=== PATIENT | male | born 1955 | race American Indian/Alaskan Native ===

== ENCOUNTER 2017-01-29 20:50 | Inpatient (IN) | payer OTHER ==
[2017-01-29 21:42] VITALS: BMI 29.2
--- NOTE | 2017-01-29 21:49 | ED PDOC ---
Arrival/HPI - General Chief Complaint: Lower Extremity Problem/Injury Time Seen by Provider: 01/29/17 21:27 Historian: Patient - History of Present Illness Narrative History of Present Illness (Text): 01/29/17 21:46 Tanner Fisher is a 61 year old male, with a past medical history of diabetes on insulin, presents to the emergency department complaining of infected leg ulcers for past 1 month. Patient with a history of IV drug abuse, injects heroin. States he has had a subjective fever, but denies any chills. Denies headache, dizziness, chest pain, shortness of breath, back pain, urinary symptoms or any other complaints at this time. Time/Duration: > week Symptom Onset: Gradual Symptom Course: Unchanged Severity Level: Mild Activities at Onset: Light Context: Home Past Medical History - Provider Review Nursing Documentation Reviewed: Yes - Cardiac Hx Hypertension: Yes - Pulmonary Hx Respiratory Disorders: No - Neurological Hx Neurological Disorder: No - HEENT Hx HEENT Disorder: No - Renal Hx Renal Disorder: No - Endocrine/Metabolic Hx Diabetes Mellitus Type 2: Yes - Hematological/Oncological Hx Blood Disorders: No - Integumentary Hx Dermatological Disorder: No - Musculoskeletal/Rheumatological Hx Musculoskeletal Disorders: No - Gastrointestinal Hx Gastrointestinal Disorders: No - Genitourinary/Gynecological Hx Genitourinary Disorders: No - Psychiatric Hx Psychophysiologic Disorder: No Hx Substance Use: Yes - Anesthesia Hx Anesthesia: No Hx Anesthesia Reactions: No Family/Social History - Physician Review Nursing Documentation Reviewed: Yes Family/Social History: No Known Family HX Smoking Status: Heavy Smoker > 10 Cigarettes Daily Hx Alcohol Use: No Hx Substance Use: Yes Substance used: heroine Allergies/Home Meds Allergies/Adverse Reactions: Allergies No Known Allergies Allergy (Verified 01/29/17 21:40) Review of Systems - Physician Review All systems were reviewed & negative as marked: Yes - Review of Systems Constitutional: Fevers (subjective fever ) Respiratory: Normal. absent: SOB, Cough Cardiovascular: Normal. absent: Chest Pain, Palpitations Musculoskeletal: Other (infected b/l lower extremity ulcers. ) Neurological: Normal. absent: Headache, Dizziness Psychiatric: Normal Physical Exam Vital Signs Reviewed: Yes Vital Signs Temp Pulse Resp BP Pulse Ox 01/30/17 01:30 98.1 F 76 18 102/58 L 96 01/29/17 21:40 98.2 F 87 16 100/58 L 98 01/29/17 21:39 98.2 F 87 16 100/58 L 98 Temperature: Afebrile Blood Pressure: Normal Pulse: Regular Respiratory Rate: Normal Appearance: Positive for: Well-Appearing, Non-Toxic, Comfortable Pain Distress: None Mental Status: Positive for: Alert and Oriented X 3 - Systems Exam Head: Present: Atraumatic, Normocephalic Pupils: Present: PERRL Extroacular Muscles: Present: EOMI Conjunctiva: Present: Normal Neck: Present: Normal Range of Motion Respiratory/Chest: Present: Clear to Auscultation, Good Air Exchange. No: Respiratory Distress, Accessory Muscle Use Cardiovascular: Present: Regular Rate and Rhythm, Normal S1, S2. No: Murmurs Abdomen: Present: Normal Bowel Sounds. No: Tenderness, Distention, Peritoneal Signs, Rebound, Guarding Upper Extremity: Present: Normal Inspection. No: Cyanosis, Edema Lower Extremity: Present: Other (multiple infected cavitated ulcers with purulent discharge to bilateral lower extremities. ) Neurological: Present: GCS=15, CN II-XII Intact, Speech Normal, Motor Func Grossly Intact, Normal Sensory Function Skin: Present: Warm, Dry, Normal Color. No: Rashes Psychiatric: Present: Alert, Oriented x 3, Normal Insight, Normal Concentration Medical Decision Making ED Course and Treatment: 01/29/17 21:53 Impression: A 61 year old male presenting to emergency department for infected lower extremity ulcers. Plan: -- Labs -- Chest X-ray -- Wound culture -- Blood culture -- Reassess and disposition Progress Notes: 01/30/17 03:[address] Kuhn who is aware and agrees with the plan to admit patient to the hospital for IV antibiotic administration. Accepts pt under hospitalist service. 01/30/17 05:17 EKG interpreted by me: NSR @ 71 bpm. 1st degree AV block. RBBB. - Lab Interpretations Lab Results: 01/30/17 01:15 01/30/17 02:00 Lab Results 01/30/17 02:00: Sodium 133, Potassium 4.4, Chloride 94 L, Carbon Dioxide 30, Anion Gap 13, BUN 12, Creatinine 0.8, Est GFR ( Amer) > 60, Est GFR (Non- Af Amer) > 60, Random Glucose 420 H*, Calcium 8.8, Total Bilirubin 0.6, AST 35, ALT 13, Alkaline Phosphatase 85, Total Protein 7.9, Albumin 3.6, Globulin 4.3, Albumin/Globulin Ratio 0.8 L 01/30/17 01:15: WBC 5.7, RBC 4.30, Hgb 13.1 L, Hct 38.7 L, MCV 90.0, MCH 30.5, MCHC 33.9, RDW 12.5, Plt Count 232, MPV 10.4, ESR 30 H I have reviewed the lab results: Yes - RAD Interpretation Radiology Orders: 01/29/17 21:48 CHEST PORTABLE [RAD] Stat - Medication Orders Current Medication Orders: Heparin Sodium (Porcine) (Heparin) 5,000 units SC Q8 ELIJAH PRN Reason: Protocol Last Admin: 01/30/17 05:05 Dose: Piperacillin Sod/Tazobactam Sod (Zosyn 3.375 In Ns 100ml) 100 mls @ 200 mls/hr IVPB Q6 ELIJAH PRN Reason: Protocol Stop: 01/30/17 12:29 Vancomycin HCl (Vancomycin 1gm) 250 mls @ 167 mls/hr IVPB Q12H ELIJAH PRN Reason: Protocol Sodium Chloride (Sodium Chloride 0.9%) 1,000 mls @ 100 mls/hr IV .Q10H ELIJAH Insulin Detemir (Levemir) 10 unit SC HS ELIJAH Insulin Human Lispro (Humalog Med) 0 units SC ACHS ELIJAH PRN Reason: Protocol Insulin Human Lispro (Humalog) 3 units SC AC ELIJAH Pantoprazole Sodium (Protonix Ec Tab) 40 mg PO 0630 ELIJAH Discontinued Medications Heparin Sodium (Porcine) (Heparin) 5,000 units SC STAT STA PRN Reason: Protocol Stop: 01/30/17 04:15 Last Admin: 01/30/17 04:29 Dose: 5,000 UNITS Subcutaneous Administrations Document 01/30/17 04:29 [email or web address] (Rec: 01/30/17 04:29 [email or web address] [id number]) Injection Site MAR Injection Site Left Abdomen Charges for Administration # of Subcutaneous Administrations 1 Sodium Chloride (Sodium Chloride 0.9%) 1,000 mls @ 100 mls/hr IV .Q10H ELIJAH Piperacillin Sod/Tazobactam Sod (Zosyn 3.375 In Ns 100ml) 100 mls @ 200 mls/hr IV STAT STA PRN Reason: Protocol Stop: 01/30/17 02:01 Last Admin: 01/30/17 03:38 Dose: 200 MLS/HR eMAR Start Stop Document 01/30/17 03:38 STEPHIE (Rec: 01/30/17 03:38 STEPHIE [facility] [id number][place] Intravenous Solution Start Date 01/30/17 Start Time 02:35 End Date 01/30/17 End time 03:38 Total Infusion Time 63 Vancomycin HCl (Vancomycin 1gm) 250 mls @ 133.333 mls/hr IVPB STAT STA PRN Reason: Protocol Stop: 01/30/17 03:26 Last Admin: 01/30/17 03:37 Dose: 133.333 MLS/HR eMAR Start Stop Document 01/30/17 03:37 STEPHIE (Rec: 01/30/17 03:38 STEPHIE [facility] [id number][place] Intravenous Solution Start Date 01/30/17 Start Time 03:38 Sodium Chloride (Sodium Chloride 0.9%) 100 mls @ 100 mls/hr IV .Q1H ELIJAH Insulin Human Lispro (Humalog) 10 units SC STAT STA Stop: 01/30/17 03:26 Last Admin: 01/30/17 03:51 Dose: 10 UNITS Subcutaneous Administrations Document 01/30/17 03:51 STEPHIE (Rec: 01/30/17 03:52 STEPHIE [facility] [id number]) Injection Site MAR Injection Site Left Deltoid Charges for Administration # of Subcutaneous Administrations 1 - Scribe Statement The provider has reviewed the documentation as recorded by the Mabel Baldwin Provider Attestation: All medical record entries made by the Mabel were at my direction and personally dictated by me. I have reviewed the chart and agree that the record accurately reflects my personal performance of the history, physical exam, medical decision making, and the department course for this patient. I have also personally directed, reviewed, and agree with the discharge instructions and disposition. Disposition/Present on Arrival - Present on Arrival Any Indicators Present on Arrival: No History of DVT/PE: No History of Uncontrolled Diabetes: No Urinary Catheter: No History of Decub. Ulcer: No History Surgical Site Infection Following: None - Disposition Have Diagnosis and Disposition been Completed?: Yes Diagnosis: Cellulitis of leg, Infected traumatic leg ulcer Disposition: HOSPITALIZED Disposition Time: 03:08 Patient Plan: Admission Patient Problems: Current Active Problems Problem Status Diagnosed Cellulitis of leg Acute Infected traumatic leg ulcer Acute Condition: STABLE
[2017-01-29] MEDS ORDERED: Sodium Chloride 0.9% 1,000 ML IV SCH (22:15)
[2017-01-30 02:34] LABS: ALB/GLOB RATIO 0.8 (1.1-1.8); ALKALINE PHOSPHATASE 85 U/L (38-133); ALT/SGPT 13 U/L (7-56); AST/SGOT 35 U/L (15-59); BILIRUBIN,TOTAL 0.6 mg/dL (0.2-1.3); BLOOD UREA NITROGEN 12 mg/dL (7-21); CALCIUM 8.8 mg/dL (8.4-10.5); CARBON DIOXIDE 30 mmol/L (21-33); CHLORIDE 94 mmol/L (95-110); GFR AFRICAN-AMERICAN > 60; POTASSIUM 4.4 mmol/L (3.6-5.0); SODIUM 133 mmol/L (132-148); TOTAL PROTEIN 7.9 g/dL (5.8-8.3)
[2017-01-30] MEDS: Piperacillin/Tazobact 3.375 gm 100 ML IV STA ×2 (02:36→03:38)
--- NOTE | 2017-01-30 02:46 | CP.PCM.HP ---
<Pamela Alvarez - Last Filed: 01/30/17 04:32> History of Present Illness - History of Present Illness History of Present Illness: PGY-[address] Kuhn Admission: Lower extremity ulcers vs cellulitis, r/o osteomyelitis, Uncontrolled DM 61 year old male, with a past medical history of diabetes on insulin and substance abuse, presents to the emergency department complaining of infected leg ulcers for past 2 month. He complained of constant sharp pain, "really sore", 7/10 worse at calf area b/l. Patient with a history of IV drug abuse, injects heroin (clean needle with chlorox), snort cocaine, buy percocet/oxycodone/xanax off street. [place] [facility] [place] 2[place]3 [place] ago for same leg cellulitis. Pt states that his mom is also admitted here, Shikha Marroquin, and sister visits daily, and that's why [place] [facility] [place] In the ED, T 98.2, HR 87, RR 16, BP 100/58 ED noted multiple infected cavitated ulcers with purulent discharge to bilateral lower extremities. EKG: Pending CXR: No active disease, read by id Blood culture and wound culture send. Pending U/A, urine drug screen, urine culture. Pt received Vanco and zosyn x 1. On NS @ 100. ROS (+) Subjective Fever. No chills Denies headache, dizziness, chest pain, shortness of breath, back pain, urinary symptoms PMH Diabetes, IDDM-2 HTN Hx Substance Use Depression Sexual Hx Not sexually active. Denies abnormal penile discharge/rash PSH R ankle surgery, 2013 from fracture due to accident FH Dad, 2016, Stroke Mom, Alzheimer SH Live by himself, ambulate with cane Active smoker, 5 Cigarettes Daily x 35 years Denies alcohol Heroine and cocaine use since dad March 2016- last use 2 weeks ago Prescription drug abuse - percocet, xanax, oxycodone All: NKDA Med: None PMD = Dr. 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 Emergency Contact = Yumiko Johnson, sister, Present on Admission - Present on Admission Any Indicators Present on Admission: Yes History of Uncontrolled Diabetes: Yes Past Patient History - Past Social History Smoking Status: Heavy Smoker > 10 Cigarettes Daily - CARDIAC Hx Hypertension: Yes - PULMONARY Hx Respiratory Disorders: No - NEUROLOGICAL Hx Neurological Disorder: No - HEENT Hx HEENT Problems: No - RENAL Hx Chronic Kidney Disease: No - ENDOCRINE/METABOLIC Hx Diabetes Mellitus Type 2: Yes - HEMATOLOGICAL/ONCOLOGICAL Hx Blood Disorders: No - INTEGUMENTARY Hx Dermatological Problems: No - MUSCULOSKELETAL/RHEUMATOLOGICAL Hx Musculoskeletal Disorders: No - GASTROINTESTINAL Hx Gastrointestinal Disorders: No - GENITOURINARY/GYNECOLOGICAL Hx Genitourinary Disorders: No - PSYCHIATRIC Hx Psychophysiologic Disorder: No Hx Substance Use: Yes - SURGICAL HISTORY Hx Surgeries: No - ANESTHESIA Hx Anesthesia: No Hx Anesthesia Reactions: No Meds Allergies/Adverse Reactions: Allergies Allergy/AdvReac Type Severity Reaction Status Date / Time No Known Allergies Allergy Verified 01/29/17 21:40 Physical Exam - Constitutional Appears: No Acute Distress, Chronically Ill - Head Exam Head Exam: ATRAUMATIC, NORMOCEPHALIC - Eye Exam Eye Exam: EOMI, Normal appearance Pupil Exam: NORMAL ACCOMODATION - ENT Exam ENT Exam: Mucous Membranes Moist, Normal Exam - Neck Exam Neck exam: Positive for: Normal Inspection. Negative for: Lymphadenopathy, Meningismus Additional comments: Scar on L neck s/p broken needle extraction from shooting drugs up the neck vein - Respiratory Exam Respiratory Exam: Clear to Auscultation Bilateral, NORMAL BREATHING PATTERN. absent: Rales, Rhonchi, Wheezes - Cardiovascular Exam Cardiovascular Exam: REGULAR RHYTHM, +S1, +S2, Systolic Murmur (slight ) - GI/Abdominal Exam GI & Abdominal Exam: Normal Bowel Sounds, Soft. absent: Distended, Guarding, Rigid, Tenderness - Back Exam Back exam: absent: CVA tenderness (L), CVA tenderness (R) - Neurological Exam Neurological exam: Alert, CN II-XII Intact, Oriented x3 - Psychiatric Exam Psychiatric exam: Depressed, Normal Affect, Normal Mood Additional comments: denies SI, HI - Skin Skin Exam: Dry, Warm Additional comments: Multiple ulceration b/l leg and ankle, medial/lateral, largest one on L posterior calf 2 inch x 1 inch, drainage. Slight incrased warmth in skin. L arm healed ulcer from vein popping Results - Vital Signs Recent Vital Signs: Last Vital Signs Temp 98.1 F 01/30/17 01:30 Pulse 76 01/30/17 01:30 Resp 18 01/30/17 01:30 BP 102/58 L 01/30/17 01:30 Pulse Ox 96 01/30/17 01:30 - Labs Result Diagrams: 01/30/17 01:15 01/30/17 02:00 Assessment & Plan - Assessment and Plan (Free Text) Plan: 61 year old male, with a past medical history of diabetes on insulin and substance abuse, presents to the emergency department complaining of infected leg ulcers for past 2 months. he has Lower extremity ulcers vs cellulitis, r/o osteomyelitis, r/o DVT Lower extremity ulcers vs cellulitis, r/o osteomyelitis, r/o DVT - Continue Vanco and zosyn pending ID recs - Foot and tib/fib b/l xray, CRP and ESR - Doppler venous b/l - ID consult - Podiatry consult - Wound care referral - Blood culture and wound culture send. Pending U/A, urine drug screen, urine culture. Hyperglycemic HHS - Blood glucose 420, no gap - Lispro 10 stat - NS @ 100 IDDM-2 - Levemir 10 HS - Lispro 3 x AC - ISSS-Med - A1C - Diabetic education Hx IV drug use, cocaine use and prescription drug abuse - Safety Teacher for cessation - Check HIV, Hep C, - Pending EKG Normocytic anemia, Hb 13 - hemodynamically stable Prophylasis - Heparin SC q8, Protonix S/R/D/w Dr. Kuhn - Date & Time Date: 01/30/17 Time: 02:46 <Hattie TREJO,George - Last Filed: 01/30/17 07:04> Results - Vital Signs Recent Vital Signs: Last Vital Signs Temp 97.7 F 01/30/17 04:25 Pulse 74 01/30/17 04:25 Resp 20 01/30/17 04:57 BP 112/56 L 01/30/17 04:25 Pulse Ox 97 01/30/17 04:25 - Labs Result Diagrams: 01/30/17 01:15 01/30/17 02:00 Labs: Laboratory Results - last 24 hr 01/30/17 03:40 Urine Opiates Screen Positive H Urine Methadone Screen Negative Ur Barbiturates Screen Negative Ur Phencyclidine Scrn Negative Ur Amphetamines Screen Negative U Benzodiazepines Scrn Positive H U Oth Cocaine Metabols Negative U Cannabinoids Screen Negative Attending/Attestation - Attestation I have personally seen and examined this patient.: Yes I have fully participated in the care of the patient.: Yes I have reviewed all pertinent clinical information: Yes Notes (Text): 01/30/17 07:01 -I agree with the above H&P completed by the resident physician. Briefly, the patient is a 61 year old AAM with a history of IVDU and IDDM who presents with acute on chronic bilateral lower extremity infected ulcers and cellulitis. Osteomyelitis must also be ruled out and therefore, leg x-rays have been ordered. Also, doppler U/S has been ordered to rule out acute DVT given asymmetric edema of the legs. ID has been consulted and empiric IV antibiotics has been started. Also, a weight based Insulin regimen plus sliding scale has been started, alongside NS IVF's.
[2017-01-30 02:48] LABS: HEMATOCRIT 38.7 % (42.0-52.0); MEAN CORPUSCULAR HEMOGLOBIN 30.5 pg (25.0-35.0); MEAN CORPUSCULAR HGB CONC 33.9 g/dl (31.0-37.0); MEAN PLATELET VOLUME 10.4 fl (7.0-11.0); RED CELL DISTRIBUTION WIDTH 12.5 % (11.5-14.5); WHITE BLOOD COUNT 5.7 10^3/ul (4.5-11.0)
[2017-01-30 02:51] LABS: GLUCOSE,RANDOM 420 mg/dL (70-110)
[2017-01-30] MEDS: Vancomycin 1gm in NS 250ml 250 ML IVPB STA ×2 (03:37→05:06)
[2017-01-30] MEDS: Insulin Lispro 1 UNITS/0.01 ML SC STA ×2 (03:51→05:05)
[2017-01-30] MEDS ORDERED: Sodium Chloride 0.9% 100 ML IV SCH (04:45)
[2017-01-30] MEDS: Sodium Chloride 0.9% 1,000 ML IV SCH ×2 (05:58→22:35)
[2017-01-30] MEDS ORDERED: Piperacillin/Tazobact 3.375 gm 100 ML IVPB SCH (06:00)
[2017-01-30] MEDS: Pantoprazole 40 mg EC Tab PO SCH (06:00)
[2017-01-30] MEDS: Piperacillin/Tazobact 3.375 gm 100 ML IVPB SCH ×4 (06:05→23:36)
--- NOTE | 2017-01-30 08:03 | RAD ---
HISTORY: fever COMPARISON: No prior. FINDINGS: LUNGS: The lungs are well inflated and clear. There is no focal consolidation. PLEURA: No significant pleural effusion identified, no pneumothorax apparent. CARDIOVASCULAR: Normal. OSSEOUS STRUCTURES: No significant abnormalities. VISUALIZED UPPER ABDOMEN: Normal. OTHER FINDINGS: None. IMPRESSION: No active pulmonary disease.
[2017-01-30] MEDS: Insulin Lispro 1 UNITS/0.01 ML SC SCH ×4 (08:44→17:23)
[2017-01-30] MEDS: Insulin Lispro (humaLOG) MEDIUM Coverage SC SCH ×5 (08:44→22:35)
--- NOTE | 2017-01-30 11:15 | RAD ---
PROCEDURE: Radiographs of the left tibia and fibula. HISTORY: r/o osteomyelitis COMPARISON: None available. TECHNIQUE: Frontal and lateral views obtained. FINDINGS: BONES: No fracture or destructive lesion. JOINT SPACES: Unremarkable. OTHER FINDINGS: None. IMPRESSION: Unremarkable radiographs of the left tibia and fibula.
--- NOTE | 2017-01-30 11:20 | RAD ---
PROCEDURE: Bilateral Ankle Radiographs. HISTORY: r/o osteomyelitis COMPARISON: None FINDINGS: BONES: Right Ankle: There has been previous internal fixation and fusion of the right ankle. The intra medullary nba in the tibia extends through the talus and calcaneus. There is a plate along the lateral aspect of the tibia and calcaneus. There is also bony fusion of the fibula. Left Ankle: Normal. No fracture. JOINTS: Right Ankle: As above Left Ankle: Normal. No osteoarthritis. Ankle mortise maintained. Talar dome intact. SOFT TISSUES: Right Ankle: Normal. Left Ankle: Normal. OTHER FINDINGS: None. IMPRESSION: Status post fusion and internal fixation of the right ankle. The left ankle is unremarkable
--- NOTE | 2017-01-30 12:03 | CARD ---
APPROVED REPORT EKG Measurement Heart [id number] <Conclusion> Sinus rhythm with 1st degree AV block Left axis deviation Right bundle branch block Abnormal ECG
[2017-01-30] MEDS: Vancomycin 1gm in NS 250ml 250 ML IVPB SCH (12:53)
--- NOTE | 2017-01-30 15:41 | CON ---
DATE: 01/30/2017 HISTORY OF PRESENT ILLNESS: This is a 61-year-old male seen at bedside with his brother present for c onsultation, evaluation and management of bilateral lower leg ulcerations. The patient believes that the ulcers have been there for approximately 2 months. He has a history of IV drug use and using hi s lower legs to inject his heroin, which he believes is the cause of his wounds. The patient valorie carrillo signed out AMA from [facility] for lower leg ulcerations because he feels that they were not treating him fairly. The patient states that his ulcers are quite painful. VITAL SIGNS: Reveal temperature of 97.4, pulse rate of 67, blood pressure 122/66, respiratory rate o f 18. LABORATORY DATA: Reveal a white count of 5.7, hemoglobin of 13.1, hematocrit 38.7, platelet count of 232 and an ESR of 31. Culture and sensitivity was taken in the ER yesterday; however, we are awaiti ng microbiology report. PAST MEDICAL HISTORY: Significant for hypertension, longstanding uncontrolled type 2 diabetes with p eripheral arterial disease and peripheral neuropathy. SOCIAL HISTORY: The patient is a heavy smoker and has been smoking most of his adult life. He denie s alcohol use, however has used numerous illicit drugs over the last several decades and specifically injects heroin regularly. MEDICATIONS: All medications are noted in MAR. DIAGNOSTIC DATA: Diagnostic ultrasound taken today, but results are pending. X-ray of the left ankl e reveals status post fusion and internal fixation. Left ankle is unremarkable. Left tibia and fibu la x-rays reveal no evidence of osteomyelitis. OBJECTIVE: Nonpalpable pedal pulses noted bilaterally, +2 nonpitting lower extremity edema noted liana aterally. Right lower leg presents with 2 large ulcerations at the anterior aspect of the leg. The base of the ulceration is a mixture of granular and fibrotic tissue. There is no purulence to sugges t underlying abscess formation. There is noted to be serous drainage. There is no malodor. The wou nds do not probe to tendon or bone. Left lower leg presents with 2 posterior ulcerations, the larges t measuring approximately 4.4 cm x 3.6 cm x 0.2 cm. Both of the ulcerations are primarily granular w ith serous drainage. None of the ulcers probe to tendon or bone. There are no signs of underlying a bscess formation. There are noted to be resolving wounds on his foot and throughout both legs that a re no longer open and draining. ASSESSMENT: Mednia grade II ulcerations to both lower extremities with accompanying cellulitis. PLAN: The patient was examined. Wounds were cleansed with normal sterile saline. We applied Xerofo rm and dry sterile dressing. We will order Santyl which will be applied to the right lower leg ulcer ations. We will order arterial Dopplers to ascertain lower extremity perfusion. MRI will be needed to rule out underlying osteomyelitis of both lower legs. We will continue with IV antibiotics, howev er, as per infectious disease. The patient will be seen and followed daily. Uriel Singh DPM cc: [id number] TT: 01/30/2017 15:40:18 Confirmation # [id number] Dictation # [id number] teagan
--- NOTE | 2017-01-30 16:48 | US ---
HISTORY: Leg pain and swelling. Evaluate for DVT PHYSICIAN(S): Stas Cowan MD. TECHNIQUE: Duplex sonography and color-flow Doppler with graded compression were used to evaluate the deep venous systems of both lower extremities. The right calf veins are not visualized due to bandages. FINDINGS: The visualized deep venous systems of both lower extremities are sonographically normal and compressible. Normal wave forms and augmentation are seen. There is no sonographic evidence for deep venous thrombosis in the visualized segments of both lower extremities. IMPRESSION: No sonographic evidence for deep venous thrombosis in the visualized segments of both lower extremities.
--- NOTE | 2017-01-30 17:54 | CP.PCM.CON ---
History of Present Illness - History of Present Illness History of Present Illness: 61 year old male with PMH of DM, HTN, peripheral arterial disease, peripheral neuropathy, history of substance abuse, history of depression was admitted in [facility] because of worsening pain in both his legs, associated with ulcers with discharge. He states that he was recently at [facility] but went against medical advice. He said that the wounds started about 2-3 weeks ago. He denies animal contacts, no travel outside of [place] in the past 3 months, no travel to wooded areas, no swimming in water. He also denies fever or chills, no nausea or vomiting, no headache or dizziness, no chest pain, no sore throat, no cough or colds, no diarrhea, no abdominal pain, no dysuria. Infectious Diseases consult is requested to further evaluate and manage. Review of Systems - Review of Systems All systems: reviewed and no additional remarkable complaints except (as per HPI ) Past Patient History - Past Medical History & Family History Past Medical History?: Yes Pertinent Family History: HTN, DM in the family - Past Social History Smoking Status: Heavy Smoker > 10 Cigarettes Daily Alcohol: Occasional Drugs: Cocaine, Opiates Home Situation {Lives}: Alone - CARDIAC Hx Hypertension: Yes - PULMONARY Hx Respiratory Disorders: No - NEUROLOGICAL Hx Neurological Disorder: No - HEENT Hx HEENT Problems: No - RENAL Hx Chronic Kidney Disease: No - ENDOCRINE/METABOLIC Hx Diabetes Mellitus Type 2: Yes - HEMATOLOGICAL/ONCOLOGICAL Hx Blood Disorders: No - INTEGUMENTARY Hx Dermatological Problems: No - MUSCULOSKELETAL/RHEUMATOLOGICAL Hx Musculoskeletal Disorders: No - GASTROINTESTINAL Hx Gastrointestinal Disorders: No - GENITOURINARY/GYNECOLOGICAL Hx Genitourinary Disorders: No - PSYCHIATRIC Hx Psychophysiologic Disorder: No Hx Substance Use: Yes - SURGICAL HISTORY Hx Surgeries: Yes - ANESTHESIA Hx Anesthesia: No Hx Anesthesia Reactions: No Meds Allergies/Adverse Reactions: Allergies Allergy/AdvReac Type Severity Reaction Status Date / Time No Known Allergies Allergy Verified 01/29/17 21:40 - Medications Medications: Current Medications Heparin Sodium (Porcine) (Heparin) 5,000 units SC Q8 ELIJAH PRN Reason: Protocol Last Admin: 01/30/17 05:05 Dose: Not Given Piperacillin Sod/Tazobactam Sod (Zosyn 3.375 In Ns 100ml) 100 mls @ 200 mls/hr IVPB Q6 ELIJAH PRN Reason: Protocol Stop: 01/30/17 12:29 Vancomycin HCl (Vancomycin 1gm) 250 mls @ 167 mls/hr IVPB Q12H ELIJAH PRN Reason: Protocol Sodium Chloride (Sodium Chloride 0.9%) 1,000 mls @ 100 mls/hr IV .Q10H ELIJAH Insulin Detemir (Levemir) 10 unit SC HS ELIJAH Insulin Human Lispro (Humalog Med) 0 units SC ACHS ELIJAH PRN Reason: Protocol Insulin Human Lispro (Humalog) 3 units SC AC [facility]AH Pantoprazole Sodium (Protonix Ec Tab) 40 mg PO 0630 ELIJAH Physical Exam - Constitutional Appears: Non-toxic, No Acute Distress - Head Exam Head Exam: NORMAL INSPECTION - ENT Exam ENT Exam: Mucous Membranes Moist - Neck Exam Neck exam: Negative for: Lymphadenopathy, Meningismus - Respiratory Exam Respiratory Exam: Decreased Breath Sounds - Cardiovascular Exam Cardiovascular Exam: +S1, +S2 - GI/Abdominal Exam GI & Abdominal Exam: Soft. absent: Tenderness - Extremities Exam Additional comments: both legs with dry dressings in place Results - Vital Signs Recent Vital Signs: Last Vital Signs Temp 97.7 F 01/30/17 04:25 Pulse 74 01/30/17 04:25 Resp 20 01/30/17 04:57 BP 112/56 L 01/30/17 04:25 Pulse Ox 97 01/30/17 04:25 - Labs Result Diagrams: 01/30/17 01:15 01/30/17 02:00 Labs: Laboratory Results - last 24 hr 01/30/17 03:40 Urine Opiates Screen Positive H Urine Methadone Screen Negative Ur Barbiturates Screen Negative Ur Phencyclidine Scrn Negative Ur Amphetamines Screen Negative U Benzodiazepines Scrn Positive H U Oth Cocaine Metabols Negative U Cannabinoids Screen Negative Assessment & Plan - Assessment and Plan (Free Text) Plan: Assessment Bilateral lower extremity ulcers with skin and skin structure infection R/O osteomyelitis DM HTN peripheral arterial disease peripheral neuropathy history of substance abuse history of depression Plan Started patient on Vancomycin and Zosyn pending blood, wound cx Reviewed Podiatry evaluation - will await results of the MRI Will follow clinically
[2017-01-30] MEDS: Insulin Detemir 100 units/ml Vial (Levemir) SC SCH (22:35)
[2017-01-31] MEDS: Vancomycin 1gm in NS 250ml 250 ML IVPB SCH ×2 (00:38→14:00)
[2017-01-31] MEDS: Sodium Chloride 0.9% 1,000 ML IV SCH ×3 (00:38→21:54)
[2017-01-31] MEDS: Piperacillin/Tazobact 3.375 gm 100 ML IVPB SCH ×4 (05:14→23:57)
[2017-01-31] MEDS: Pantoprazole 40 mg EC Tab PO SCH (05:40)
[2017-01-31] MEDS: Insulin Lispro 1 UNITS/0.01 ML SC SCH ×3 (08:47→17:52)
[2017-01-31] MEDS: Insulin Lispro (humaLOG) MEDIUM Coverage SC SCH ×4 (08:47→21:51)
[2017-01-31 10:29] LABS: ALB/GLOB RATIO 0.7 (1.1-1.8); ALKALINE PHOSPHATASE 75 U/L (38-133); ALT/SGPT 16 U/L (7-56); AST/SGOT 31 U/L (15-59); BILIRUBIN,TOTAL 0.8 mg/dL (0.2-1.3); BLOOD UREA NITROGEN 9 mg/dL (7-21); CALCIUM 8.4 mg/dL (8.4-10.5); CARBON DIOXIDE 21 mmol/L (21-33); CHLORIDE 102 mmol/L (98-107); GFR AFRICAN-AMERICAN > 60; GLUCOSE,RANDOM 225 mg/dL (70-110); POTASSIUM 3.8 mmol/L (3.6-5.0); SODIUM 134 mmol/L (132-148); TOTAL PROTEIN 7.8 g/dL (5.8-8.3)
[2017-01-31 10:48] LABS: ADD MANUAL DIFF? NO
[2017-01-31 10:52] LABS: BASO # 0.01 K/mm3 (0.0-2.0); BASO % 0.1 % (0.0-3.0); GRAN % 82.4 % (50.0-68.0); HEMATOCRIT 39.2 % (42.0-52.0); LYMPH # 1.2 (1.2-3.4); MEAN CELL VOLUME 86.9 fL (80.0-105.0); MEAN CORPUSCULAR HEMOGLOBIN 30.2 pg (25.0-35.0); MEAN CORPUSCULAR HGB CONC 34.7 g/dl (31.0-37.0); MONO # 0.2 (0.1-0.6); MONO % 2.5 % (1.0-6.0); PLATELET COUNT 268 10^3/uL (120.0-450.0); RED CELL DISTRIBUTION WIDTH 12.2 % (11.5-14.5); WHITE BLOOD COUNT 7.9 10^3/ul (4.5-11.0)
[2017-01-31] MEDS: Collagenase 250 Units/gm Ointment(30 gm) TOP SCH (12:46)
--- NOTE | 2017-01-31 13:12 | CP.PCM.PN ---
<Leo Witt - Last Filed: 01/31/17 13:00> Subjective - Date & Time of Evaluation Date of Evaluation: 01/31/17 Time of Evaluation: 13:00 - Subjective Subjective: Pt seen and examined at bedside. Pt is more alert today than previous day. Pt had several episodes of emesis overnight, nonbloody. Pt states he feels like he may be going through withdrawal. Vomiting this morning has now subsided. Denies CP, SOB, N/V/D. Objective - Vital Signs/Intake and Output Vital Signs (last 24 hours): Temp Pulse Resp BP Pulse Ox 99.9 F H 60 20 166/83 H 98 01/31/17 06:00 01/31/17 06:00 01/31/17 06:00 01/31/17 06:00 01/31/17 06:00 Intake and Output: 01/31/17 01/31/17 06:59 18:59 Intake Total 2600 Output Total 3350 Balance -750 - Medications Medications: Current Medications Collagenase (Santyl) 3 gm TOP DAILY ELIJAH Stop: 02/05/17 23:00 Last Admin: 01/31/17 12:46 Dose: 1 applic Heparin Sodium (Porcine) (Heparin) 5,000 units SC Q8 ELIJAH PRN Reason: Protocol Last Admin: 01/31/17 05:13 Dose: 5,000 units Vancomycin HCl (Vancomycin 1gm) 250 mls @ 167 mls/hr IVPB Q12H ELIJAH PRN Reason: Protocol Last Admin: 01/31/17 00:38 Dose: 167 mls/hr Sodium Chloride (Sodium Chloride 0.9%) 1,000 mls @ 100 mls/hr IV .Q10H ELIJAH Last Admin: 01/31/17 00:38 Dose: Not Given Piperacillin Sod/Tazobactam Sod (Zosyn 3.375 In Ns 100ml) 100 mls @ 200 mls/hr IVPB Q6 ELIJAH PRN Reason: Protocol Stop: 02/06/17 06:01 Last Admin: 01/31/17 12:39 Dose: 200 mls/hr Insulin Detemir (Levemir) 10 unit SC HS ELIJAH Last Admin: 01/30/17 22:35 Dose: 10 unit Insulin Human Lispro (Humalog Med) 0 units SC ACHS ELIJAH PRN Reason: Protocol Last Admin: 01/31/17 12:39 Dose: 5 units Insulin Human Lispro (Humalog) 3 units SC AC [facility] Last Admin: 01/31/17 12:39 Dose: 3 units Lorazepam (Ativan) 0.5 mg IVP Q6H PRN; Protocol PRN Reason: Anxiety Last Admin: 01/31/17 04:45 Dose: 0.5 mg Ondansetron HCl (Zofran Inj) 4 mg IVP Q4H PRN PRN Reason: Nausea/Vomiting Last Admin: 01/31/17 08:48 Dose: 4 mg Pantoprazole Sodium (Protonix Ec Tab) 40 mg PO 0630 [facility] Last Admin: 01/31/17 05:40 Dose: 40 mg Tramadol HCl (Ultram) 50 mg PO TID [facility] - Labs Labs: 01/31/17 10:40 01/31/17 10:15 - Constitutional Appears: Well, No Acute Distress - Head Exam Head Exam: ATRAUMATIC, NORMAL INSPECTION, NORMOCEPHALIC - ENT Exam ENT Exam: Mucous Membranes Moist, Normal Exam - Respiratory Exam Respiratory Exam: Clear to Ausculation Bilateral, NORMAL BREATHING PATTERN. absent: Rhonchi, Wheezes - Cardiovascular Exam Cardiovascular Exam: RRR, +S1, +S2 - GI/Abdominal Exam GI & Abdominal Exam: Soft, Normal Bowel Sounds. absent: Tenderness - Extremities Exam Additional comments: B/L Lower extremities bandaged. Clean, dry, and intact. - Neurological Exam Neurological Exam: Alert, Awake, Oriented x3 - Psychiatric Exam Psychiatric exam: Normal Affect, Normal Mood - Skin Skin Exam: Intact, Normal Color, Warm Assessment and Plan - Assessment and Plan (Free Text) Plan: 61 y/o M with PMH of HTN, DM, polysubstance abuse with cocaine and heroin, and depression presents with b/l leg ulcerations. Pt is undergoing lower extremity bone scan to evaluate for osteomyelitis, as pt did not tolerate MRI. Pt remains on Vancomycin and Zosyn for ulcers, wound cultures have come back as gram negative rods. Pt is being followed by ID at this time. A1c came back at 15.2, pt placed back on home insulin regimen. Will await podiatry recommendations pending bone scan and arterial dopplers. 1. B/l lower ext ulcers - Rule out osteomyelitis - Venous dopplers negative - Arterial doppler pending - Bone scan pending - ID following, on Vanco and Zosyn - Wound culture shows gram negative rods - Podiatry following. 2. Heroin Withdrawal - Ativan 0.5 mg q6h - Psychiatry consulted. 3. Hx of DM - Home insulin regimen restarted - Glucose levels stable at this time - A1c 15.2 4. PPX - Protonix - Heparin - Zofran Seen, reviewed, and discussed with attending. Eduar, PGY-1 <Trixie Lugo - Last Filed: 01/31/17 13:52> Objective - Vital Signs/Intake and Output Vital Signs (last 24 hours): Temp Pulse Resp BP Pulse Ox 99.9 F H 60 20 166/83 H 98 01/31/17 06:00 01/31/17 06:00 01/31/17 06:00 01/31/17 06:00 01/31/17 06:00 Intake and Output: 01/31/17 01/31/17 06:59 18:59 Intake Total 2600 Output Total 3350 Balance -750 - Medications Medications: Current Medications Collagenase (Santyl) 3 gm TOP DAILY [facility] Stop: 02/05/17 23:00 Last Admin: 01/31/17 12:46 Dose: 1 applic Heparin Sodium (Porcine) (Heparin) 5,000 units SC Q8 ELIJAH PRN Reason: Protocol Last Admin: 01/31/17 05:13 Dose: 5,000 units Vancomycin HCl (Vancomycin 1gm) 250 mls @ 167 mls/hr IVPB Q12H ELIJAH PRN Reason: Protocol Last Admin: 01/31/17 00:38 Dose: 167 mls/hr Sodium Chloride (Sodium Chloride 0.9%) 1,000 mls @ 100 mls/hr IV .Q10H [facility] Last Admin: 01/31/17 00:38 Dose: Not Given Piperacillin Sod/Tazobactam Sod (Zosyn 3.375 In Ns 100ml) 100 mls @ 200 mls/hr IVPB Q6 ELIJAH PRN Reason: Protocol Stop: 02/06/17 06:01 Last Admin: 01/31/17 12:39 Dose: 200 mls/hr Insulin Detemir (Levemir) 10 unit SC HS ELIJAH Last Admin: 01/30/17 22:35 Dose: 10 unit Insulin Human Lispro (Humalog Med) 0 units SC ACHS ELIJAH PRN Reason: Protocol Last Admin: 01/31/17 12:39 Dose: 5 units Insulin Human Lispro (Humalog) 3 units SC AC [facility]IJAH Last Admin: 01/31/17 12:39 Dose: 3 units Lorazepam (Ativan) 0.5 mg IVP Q6H PRN; Protocol PRN Reason: Anxiety Last Admin: 01/31/17 04:45 Dose: 0.5 mg Ondansetron HCl (Zofran Inj) 4 mg IVP Q4H PRN PRN Reason: Nausea/Vomiting Last Admin: 01/31/17 08:48 Dose: 4 mg Pantoprazole Sodium (Protonix Ec Tab) 40 mg PO 0630 [facility] Last Admin: 01/31/17 05:40 Dose: 40 mg Tramadol HCl (Ultram) 50 mg PO TID [facility] - Labs Labs: 01/31/17 10:40 01/31/17 10:15 Attending/Attestation - Attestation I have personally seen and examined this patient.: Yes I have fully participated in the care of the patient.: Yes I have reviewed all pertinent clinical information, including history, physical exam and plan: Yes Notes (Text): 01/31/17 13:44 61 year old male with past medical history of diabetes, substance abuse and chronic leg ulcerations presented with complaint of worsening leg ulcerations. Venous dopplers and xrays were negative. Arterial dopplers are ordered. Bone scan is also ordered (patient could not tolerate MRI) to rule out osteomyelitis. Continue with wound care as per podiatry and iv antibiotics as per ID. Will follow up on cultures so far growing gram negative rods. He was counselled on risks of continued substance abuse. Continue with supportive care for possible withdrawal symptoms. He is on zofran prn for nausea/vomiting and ativan prn for agitation. Psychiatry evaluation was also requested. He is on levemir and insulin ss for diabetes. Trixie Lugo MD Hospitalist.
--- NOTE | 2017-01-31 13:32 | CP.PCM.PN ---
Subjective - Date & Time of Evaluation Date of Evaluation: 01/31/17 Time of Evaluation: 09:05 - Subjective Subjective: Comfortable, not in distress, no fevers, less pain the legs. Objective - Vital Signs/Intake and Output Vital Signs (last 24 hours): Temp Pulse Resp BP Pulse Ox 98.2 F 67 20 112/64 97 01/30/17 16:00 01/30/17 16:00 01/30/17 16:00 01/30/17 16:00 01/30/17 16:00 Intake and Output: 01/31/17 01/31/17 06:59 18:59 Intake Total 2600 Output Total 3350 Balance -750 - Medications Medications: Current Medications Collagenase (Santyl) 3 gm TOP DAILY ELIJAH Stop: 02/05/17 23:00 Heparin Sodium (Porcine) (Heparin) 5,000 units SC Q8 ELIJAH PRN Reason: Protocol Last Admin: 01/31/17 05:13 Dose: 5,000 units Vancomycin HCl (Vancomycin 1gm) 250 mls @ 167 mls/hr IVPB Q12H LEIJAH PRN Reason: Protocol Last Admin: 01/31/17 00:38 Dose: 167 mls/hr Sodium Chloride (Sodium Chloride 0.9%) 1,000 mls @ 100 mls/hr IV .Q10H [facility]IJAH Last Admin: 01/31/17 00:38 Dose: Not Given Piperacillin Sod/Tazobactam Sod (Zosyn 3.375 In Ns 100ml) 100 mls @ 200 mls/hr IVPB Q6 ELIJHA PRN Reason: Protocol Stop: 02/06/17 06:01 Last Admin: 01/31/17 05:14 Dose: 200 mls/hr Insulin Detemir (Levemir) 10 unit SC HS [facility] Last Admin: 01/30/17 22:35 Dose: 10 unit Insulin Human Lispro (Humalog Med) 0 units SC ACHS ELIJAH PRN Reason: Protocol Last Admin: 01/30/17 22:35 Dose: Not Given Insulin Human Lispro (Humalog) 3 units SC AC [facility] Last Admin: 01/30/17 17:23 Dose: Not Given Lorazepam (Ativan) 0.5 mg IVP Q6H PRN; Protocol PRN Reason: Anxiety Last Admin: 01/31/17 04:45 Dose: 0.5 mg Ondansetron HCl (Zofran Inj) 4 mg IVP Q4H PRN PRN Reason: Nausea/Vomiting Last Admin: 01/31/17 04:45 Dose: 4 mg Pantoprazole Sodium (Protonix Ec Tab) 40 mg PO 0630 [facility]IJAH Last Admin: 01/31/17 05:40 Dose: 40 mg - Constitutional Appears: Non-toxic, No Acute Distress - Head Exam Head Exam: NORMAL INSPECTION - Respiratory Exam Respiratory Exam: Decreased Breath Sounds - Cardiovascular Exam Cardiovascular Exam: +S1, +S2 - GI/Abdominal Exam GI & Abdominal Exam: Soft. absent: Tenderness - Extremities Exam Additional comments: both legs with dry dressings in place Assessment and Plan - Assessment and Plan (Free Text) Plan: Assessment Bilateral lower extremity ulcers with skin and skin structure infection R/O osteomyelitis DM HTN peripheral arterial disease peripheral neuropathy history of substance abuse history of depression Plan continue Vancomycin and Zosyn (day 2) pending final blood, wound cx results Reviewed Podiatry evaluation - patient was unable to do MRI; patient to undergo bone scan Will follow clinically Discussed with Dr. Lugo
--- NOTE | 2017-01-31 13:43 | CP.PCM.PN ---
Subjective - Date & Time of Evaluation Date of Evaluation: 01/31/17 Time of Evaluation: 13:36 - Subjective Subjective: 61 y/o male seen at bedside with attending Dr. Hermosillo for ulcerations of feet and legs bilaterally. Patient was sent for MRI this morning and was unable to have it done because he was moving too much. patient was also supposed to have arterial dopplers but could not sit still for that test either. Patient appears in NAD and AAOx3. Patient has mild pain in his legs. Patient's dressings are not intact to legs. Patient denies any acute events overnight. Patient denies n/ f/v/c/d/sob Objective - Vital Signs/Intake and Output Vital Signs (last 24 hours): Temp Pulse Resp BP Pulse Ox 99.9 F H 60 20 166/83 H 98 01/31/17 06:00 01/31/17 06:00 01/31/17 06:00 01/31/17 06:00 01/31/17 06:00 Intake and Output: 01/31/17 01/31/17 06:59 18:59 Intake Total 2600 Output Total 3350 Balance -750 - Medications Medications: Current Medications Collagenase (Santyl) 3 gm TOP DAILY ELIJAH Stop: 02/05/17 23:00 Last Admin: 01/31/17 12:46 Dose: 1 applic Heparin Sodium (Porcine) (Heparin) 5,000 units SC Q8 ELIJAH PRN Reason: Protocol Last Admin: 01/31/17 05:13 Dose: 5,000 units Vancomycin HCl (Vancomycin 1gm) 250 mls @ 167 mls/hr IVPB Q12H ELIJAH PRN Reason: Protocol Last Admin: 01/31/17 00:38 Dose: 167 mls/hr Sodium Chloride (Sodium Chloride 0.9%) 1,000 mls @ 100 mls/hr IV .Q10H [facility]IJAH Last Admin: 01/31/17 00:38 Dose: Not Given Piperacillin Sod/Tazobactam Sod (Zosyn 3.375 In Ns 100ml) 100 mls @ 200 mls/hr IVPB Q6 ELIJAH PRN Reason: Protocol Stop: 02/06/17 06:01 Last Admin: 01/31/17 12:39 Dose: 200 mls/hr Insulin Detemir (Levemir) 10 unit SC HS [facility]IJAH Last Admin: 01/30/17 22:35 Dose: 10 unit Insulin Human Lispro (Humalog Med) 0 units SC ACHS ELIJAH PRN Reason: Protocol Last Admin: 01/31/17 12:39 Dose: 5 units Insulin Human Lispro (Humalog) 3 units SC AC [facility] Last Admin: 01/31/17 12:39 Dose: 3 units Lorazepam (Ativan) 0.5 mg IVP Q6H PRN; Protocol PRN Reason: Anxiety Last Admin: 01/31/17 04:45 Dose: 0.5 mg Ondansetron HCl (Zofran Inj) 4 mg IVP Q4H PRN PRN Reason: Nausea/Vomiting Last Admin: 01/31/17 08:48 Dose: 4 mg Pantoprazole Sodium (Protonix Ec Tab) 40 mg PO 0630 ELIJAH Last Admin: 01/31/17 05:40 Dose: 40 mg Tramadol HCl (Ultram) 50 mg PO TID ELIJAH - Labs Labs: 01/31/17 10:40 01/31/17 10:15 - Constitutional Appears: Well, Non-toxic, No Acute Distress - Extremities Exam Additional comments: Vasc: nonpalpable pedal pulses bilaterally, +2 nonpitting edema to lower extremities b/l, TG wnl, CFT < 3 sec to all digits neuro: grossly diminished derm: right lower leg presents with 2 large ulcerations at the anterior aspect of leg- base of the ulceration is mixture of granular and fibrotic tissue, no purulence, no drainage, no underlying abscess, no malodor, no probe to bone left lower extremity presents with 2 posterior ulcerations measuring 4.4cm x 3.6cmx 0.2cm. both ulcerations are granular with serous drainage- no probe to bone, no purulence bilateral legs show resolved wounds that are no longer open or draining - Neurological Exam Neurological Exam: Alert, Awake, Oriented x3 - Psychiatric Exam Psychiatric exam: Normal Affect, Normal Mood Assessment and Plan - Assessment and Plan (Free Text) Assessment: 61 y/o male seen at bedside for bilateral lower extremity ulcerations (espinoza grade 2) with accompanying cellulitis Plan: patient evaluated and seen at bedside with attending Dr. Hermosillo labs and vitals reviewed applied santyl, ABD, DSD, JAMES to bilateral lower extremities bone scan ordered for bilateral lower extremities to rule out OM patient to go for arterial dopplers tomorrow after being pre-medicated in order to sit still discussed with public health social worker about possibility of acute rehab facility, and drug rehab patient willing to go to drug rehab facility patient instructed to keep dressings to lower extremities c//d/i patient to continue IV abx as per ID podiatry will continue to monitor while patient remains in house
--- NOTE | 2017-01-31 18:53 | CP.PCM.PN ---
Subjective - Date & Time of Evaluation Date of Evaluation: 01/31/17 Time of Evaluation: 10:05 - Subjective Subjective: blood drawn for lab from the rt femoral artery. Objective - Vital Signs/Intake and Output Vital Signs (last 24 hours): Temp Pulse Resp BP Pulse Ox 98.1 F 52 L 20 164/79 H 99 01/31/17 16:00 01/31/17 16:00 01/31/17 16:00 01/31/17 16:00 01/31/17 16:00 Intake and Output: 01/31/17 01/31/17 06:59 18:59 Intake Total 2600 Output Total 3350 Balance -750 - Medications Medications: Current Medications Collagenase (Santyl) 3 gm TOP DAILY ELIJAH Stop: 02/05/17 23:00 Last Admin: 01/31/17 12:46 Dose: 1 applic Heparin Sodium (Porcine) (Heparin) 5,000 units SC Q8 ELIJAH PRN Reason: Protocol Last Admin: 01/31/17 14:37 Dose: 5,000 units Vancomycin HCl (Vancomycin 1gm) 250 mls @ 167 mls/hr IVPB Q12H ELIJAH PRN Reason: Protocol Last Admin: 01/31/17 14:00 Dose: 167 mls/hr Sodium Chloride (Sodium Chloride 0.9%) 1,000 mls @ 100 mls/hr IV .Q10H ELIJAH Last Admin: 01/31/17 11:15 Dose: Not Given Piperacillin Sod/Tazobactam Sod (Zosyn 3.375 In Ns 100ml) 100 mls @ 200 mls/hr IVPB Q6 ELIJAH PRN Reason: Protocol Stop: 02/06/17 06:01 Last Admin: 01/31/17 17:56 Dose: 200 mls/hr Insulin Detemir (Levemir) 10 unit SC HS [facility]IJAH Last Admin: 01/30/17 22:35 Dose: 10 unit Insulin Human Lispro (Humalog Med) 0 units SC ACHS ELIJAH PRN Reason: Protocol Last Admin: 01/31/17 17:52 Dose: Not Given Insulin Human Lispro (Humalog) 3 units SC AC [facility]IJAH Last Admin: 01/31/17 17:52 Dose: Not Given Lorazepam (Ativan) 0.5 mg IVP Q6H PRN; Protocol PRN Reason: Anxiety Last Admin: 01/31/17 04:45 Dose: 0.5 mg Ondansetron HCl (Zofran Inj) 4 mg IVP Q4H PRN PRN Reason: Nausea/Vomiting Last Admin: 01/31/17 17:56 Dose: 4 mg Pantoprazole Sodium (Protonix Ec Tab) 40 mg PO 0630 [facility] Last Admin: 01/31/17 05:40 Dose: 40 mg Tramadol HCl (Ultram) 50 mg PO TID [facility] Last Admin: 01/31/17 17:57 Dose: 50 mg - Labs Labs: 01/31/17 10:40 01/31/17 10:15
[2017-01-31] MEDS: Insulin Detemir 100 units/ml Vial (Levemir) SC SCH (21:51)
[2017-02-01] MEDS ORDERED: TraMADol/Apap 37.5/325 mg Tab PO STA (00:04)
[2017-02-01] MEDS: Vancomycin 1gm in NS 250ml 250 ML IVPB SCH ×2 (00:55→15:16)
[2017-02-01] MEDS: Pantoprazole 40 mg EC Tab PO SCH (06:04)
[2017-02-01] MEDS: Piperacillin/Tazobact 3.375 gm 100 ML IVPB SCH ×4 (06:04→23:55)
[2017-02-01 08:22] LABS: ADD MANUAL DIFF? NO
[2017-02-01 08:24] LABS: BASO # 0.02 K/mm3 (0.0-2.0); BASO % 0.2 % (0.0-3.0); GRAN # 5.91 (1.4-6.5); GRAN % 69.5 % (50.0-68.0); HEMATOCRIT 39.6 % (42.0-52.0); LYMPH # 2.1 (1.2-3.4); LYMPH % 24.2 % (22.0-35.0); MEAN CELL VOLUME 85.5 fL (80.0-105.0); MEAN CORPUSCULAR HEMOGLOBIN 30.5 pg (25.0-35.0); MEAN CORPUSCULAR HGB CONC 35.6 g/dl (31.0-37.0); MONO # 0.5 (0.1-0.6); MONO % 6.1 % (1.0-6.0); PLATELET COUNT 262 10^3/uL (120.0-450.0); RED CELL DISTRIBUTION WIDTH 12.1 % (11.5-14.5); WHITE BLOOD COUNT 8.5 10^3/ul (4.5-11.0)
[2017-02-01 08:38] LABS: ALB/GLOB RATIO 0.8 (1.1-1.8); ALKALINE PHOSPHATASE 69 U/L (38-133); ALT/SGPT 21 U/L (7-56); AST/SGOT 34 U/L (15-59); BILIRUBIN,TOTAL 0.8 mg/dL (0.2-1.3); BLOOD UREA NITROGEN 7 mg/dL (7-21); CALCIUM 8.5 mg/dL (8.4-10.5); CARBON DIOXIDE 23 mmol/L (21-33); CHLORIDE 99 mmol/L (98-107); GFR AFRICAN-AMERICAN > 60; GLUCOSE,RANDOM 172 mg/dL (70-110); POTASSIUM 3.3 mmol/L (3.6-5.0); SODIUM 132 mmol/L (132-148); TOTAL PROTEIN 8.1 g/dL (5.8-8.3)
[2017-02-01] MEDS: Insulin Lispro 1 UNITS/0.01 ML SC SCH ×3 (08:43→17:28)
[2017-02-01] MEDS: Insulin Lispro (humaLOG) MEDIUM Coverage SC SCH ×4 (08:43→21:23)
[2017-02-01] MEDS ORDERED: Potassium Chloride 20 mEq ER Tab PO STA (08:58)
[2017-02-01] MEDS: Collagenase 250 Units/gm Ointment(30 gm) TOP SCH (09:00)
--- NOTE | 2017-02-01 09:17 | CP.PCM.PN ---
<Kiki Monae - Last Filed: 02/01/17 09:14> Subjective - Date & Time of Evaluation Date of Evaluation: 02/01/17 Time of Evaluation: 09:14 - Subjective Subjective: 61 y/o male seen at bedside with attending Dr. Hermosillo for ulcerations of feet and legs bilaterally.Patient going for WBC tagged indium bone scan today and arterial doppler studies. Patient appears in NAD and AAOx3. Patient has mild pain in his legs. Patient's dressings intact to legs. Patient denies any acute events overnight. Patient denies n/f/v/c/d/sob Objective - Vital Signs/Intake and Output Vital Signs (last 24 hours): Temp Pulse Resp BP Pulse Ox 98.1 F 52 L 20 164/79 H 99 01/31/17 16:00 01/31/17 16:00 01/31/17 16:00 01/31/17 16:00 01/31/17 16:00 Intake and Output: 02/01/17 02/01/17 06:59 18:59 Intake Total 120 0 Output Total 700 250 Balance -580 -250 - Medications Medications: Current Medications Collagenase (Santyl) 3 gm TOP DAILY [facility] Stop: 02/05/17 23:00 Last Admin: 01/31/17 12:46 Dose: 1 applic Heparin Sodium (Porcine) (Heparin) 5,000 units SC Q8 [facility] PRN Reason: Protocol Last Admin: 02/01/17 06:04 Dose: 5,000 units Vancomycin HCl (Vancomycin 1gm) 250 mls @ 167 mls/hr IVPB Q12H [facility] PRN Reason: Protocol Last Admin: 02/01/17 00:55 Dose: 167 mls/hr Sodium Chloride (Sodium Chloride 0.9%) 1,000 mls @ 100 mls/hr IV .Q10H [facility] Last Admin: 01/31/17 21:54 Dose: 100 mls/hr Piperacillin Sod/Tazobactam Sod (Zosyn 3.375 In Ns 100ml) 100 mls @ 200 mls/hr IVPB Q6 [facility] PRN Reason: Protocol Stop: 02/06/17 06:01 Last Admin: 02/01/17 06:04 Dose: 200 mls/hr Insulin Detemir (Levemir) 10 unit SC HS [facility] Last Admin: 01/31/17 21:51 Dose: 10 unit Insulin Human Lispro (Humalog Med) 0 units SC ACHS [facility] PRN Reason: Protocol Last Admin: 02/01/17 08:43 Dose: 1 units Insulin Human Lispro (Humalog) 3 units SC AC [facility] Last Admin: 02/01/17 08:43 Dose: 3 units Lorazepam (Ativan) 0.5 mg IVP Q6H PRN; Protocol PRN Reason: Anxiety Last Admin: 02/01/17 03:52 Dose: 0.5 mg Ondansetron HCl (Zofran Inj) 4 mg IVP Q4H PRN PRN Reason: Nausea/Vomiting Last Admin: 01/31/17 17:56 Dose: 4 mg Pantoprazole Sodium (Protonix Ec Tab) 40 mg PO 0630 [facility] Last Admin: 02/01/17 06:04 Dose: 40 mg Tramadol HCl (Ultram) 50 mg PO TID [facility] Last Admin: 01/31/17 17:57 Dose: 50 mg - Labs Labs: 02/01/17 08:15 02/01/17 08:15 - Constitutional Appears: Well, Non-toxic, No Acute Distress - Extremities Exam Additional comments: Vasc: nonpalpable pedal pulses bilaterally, +2 nonpitting edema to lower extremities b/l, TG wnl, CFT < 3 sec to all digits neuro: grossly diminished derm: right lower leg presents with 2 large ulcerations at the anterior aspect of leg- base of the ulceration is mixture of granular and fibrotic tissue, no purulence, no drainage, no underlying abscess, no malodor, no probe to bone left lower extremity presents with 2 posterior ulcerations measuring 4.4cm x 3.6cmx 0.2cm. both ulcerations are granular with serous drainage- no probe to bone, no purulence bilateral legs show resolved wounds that are no longer open or draining - Neurological Exam Neurological Exam: Alert, Awake, Oriented x3 - Psychiatric Exam Psychiatric exam: Normal Affect, Normal Mood Assessment and Plan - Assessment and Plan (Free Text) Assessment: 61 y/o male seen at bedside for bilateral lower extremity ulcerations (espinoza grade 2) with accompanying cellulitis Plan: patient evaluated and seen at bedside with Dr. Hermosillo labs and vitals reviewed; WBC 8.5, afebrile wound cx; prelim= gram negative rods continue IV abx f/u ceretec bone scan f/u arterial dopplers dressing remains intact to bilateral lower extremities podiatry will continue to monitor while patient remains in house <Kiersten Hermosillo - Last Filed: 02/04/17 12:25> Objective - Vital Signs/Intake and Output Vital Signs (last 24 hours): Temp Pulse Resp BP Pulse Ox 98.5 F 64 20 133/81 98 02/04/17 06:00 02/04/17 09:15 02/04/17 06:00 02/04/17 09:15 02/04/17 06:00 Intake and Output: 02/04/17 02/04/17 06:59 18:59 Intake Total 360 Output Total 500 Balance -140 - Medications Medications: Current Medications Collagenase (Santyl) 3 gm TOP DAILY [facility] Stop: 02/05/17 23:00 Last Admin: 02/04/17 09:16 Dose: 1 applic Heparin Sodium (Porcine) (Heparin) 5,000 units SC Q8 [facility] PRN Reason: Protocol Last Admin: 02/04/17 06:00 Dose: 5,000 units Hydralazine HCl (Apresoline) 10 mg IVP Q6 PRN PRN Reason: Systolic Blood Pressure Last Admin: 02/02/17 19:28 Dose: 10 mg Ceftriaxone Sodium (Rocephin 1 Gram Ivpb) 100 mls @ 100 mls/hr IVPB DAILY [facility] PRN Reason: Protocol Last Admin: 02/04/17 09:15 Dose: 100 mls/hr Insulin Detemir (Levemir) 10 unit SC HS [facility] Last Admin: 02/03/17 21:24 Dose: Not Given Insulin Human Lispro (Humalog Med) 0 units SC ACHS [facility] PRN Reason: Protocol Last Admin: 02/04/17 11:44 Dose: Not Given Insulin Human Lispro (Humalog) 3 units SC AC [facility] Last Admin: 02/04/17 11:46 Dose: 3 units Lisinopril (Zestril) 5 mg PO DAILY [facility] Last Admin: 02/04/17 09:15 Dose: 5 mg Loperamide HCl (Imodium) 2 mg PO QID PRN PRN Reason: Diarrhea Last Admin: 02/04/17 09:15 Dose: 2 mg Lorazepam (Ativan) 0.5 mg IVP Q6H PRN; Protocol PRN Reason: Anxiety Last Admin: 02/01/17 11:08 Dose: 0.5 mg Ondansetron HCl (Zofran Inj) 4 mg IVP Q4H PRN PRN Reason: Nausea/Vomiting Last Admin: 02/02/17 22:51 Dose: 4 mg Pantoprazole Sodium (Protonix Ec Tab) 40 mg PO 0630 [facility] Last Admin: 02/04/17 06:00 Dose: 40 mg Tramadol/Acetaminophen (Ultracet 37.5/325 Mg) 1 tab PO Q6H PRN PRN Reason: Pain, moderate (4-7) Last Admin: 02/04/17 04:07 Dose: 1 tab Trazodone HCl (Desyrel) 50 mg PO HS PRN PRN Reason: Insomnia Last Admin: 02/03/17 21:27 Dose: 50 mg - Labs Labs: 02/04/17 08:30 02/04/17 08:30 Attending/Attestation - Attestation I have personally seen and examined this patient.: Yes I have fully participated in the care of the patient.: Yes I have reviewed all pertinent clinical information, including history, physical exam and plan: Yes
--- NOTE | 2017-02-01 11:23 | CON ---
DATE: 02/01/2017 HISTORY OF PRESENT ILLNESS: The patient is a 61-year-old male with history of polys ubstance abuse and dependence, multiple medical issues including diabetes on insulin, presented to [facility] Emergency Room complaining of infection, leg ulcers for the past month. The patient was admitted t o the medical floor for abscess as well as rule out osteomyelitis. Psych consult was called for eval uation of possible mood symptoms. The patient reported history of depression and possible withdrawal symptoms. The patient was seen and examined today. History reviewed. This food writer never was invol ed in the patient's care in the past. The patient does not have history of being admitted to the [facility] inpatient unit at least in [facility]. The patient was seen and examined today. The patient presented to be alert. The patient was oriente d in self, time, and place, pleasant and cooperative. The patient is a poor and unreliable historian . The patient said that he started to use drugs 3 years ago after his loss of his as well as hi s father. The patient reported that he started to use heroin intravenously as well as cocaine snorti ng as well as Xanax at the nighttime for insomnia. The patient would spend approximately 60-70 amy rs a day to maintain his habits. The patient reported heroin about 7 bags a day, cocaine is about 3- 4 bags a day as well as Xanax he would spend 7 dollars a day. At the same time, this food writer doubted that patient started to use drugs 3 years ago only because patient has a history of being in rehab in [place] in 1999; after that he stayed sober for 2 years as per patient. Most likely patient has andressa g and sustained history of polysubstance abuse and dependence. The patient reported that this situat ion from the financial struggling makes him feel depressed but still, at the same time, patient has w orked. The patient works as a [employer], lives independently in [place]. The patient denied any oughts of killing himself or others, denied intent or plan. The patient denied hearing voices, denie d seeing things, denied paranoid ideations. The patient does not present to be psychotic. The patie nt is compliant with the medication and treatment plan. Reports that at present moment he has upset stomach, but obviously has no signs of withdrawing from heroin. VITAL SIGNS: Stable. Temperature 99.6, pulse 44, blood pressure 145/61, respirations 20, oxygen sat uration is 99. MEDICATIONS: Reviewed. The patient is on , topical heparin, Levemir, Humalog, Ativan, Zofran, Protonix, Zosyn, sodium chloride, Ultracet. Trazodone will be started because patient complained of insomnia and vancomycin also was started by infectious disease team. LABORATORY DATA: Most recent labs from today: Hemoglobin and hematocrit 14.1 and 39.6, WBC shows 8. 5, ESR is 30. Chemistry reviewed. Potassium is 3.3 and glucose 172. Toxicology reviewed, opioids p ositive, benzodiazepines positive. Serology: Hepatitis C antibody reactive and high. Reports were reviewed. The patient was seen by infectious disease doctor as well as podiatry team. Rule out osteomyelitis. The patient to undergo bone scan because patient was unable to do MRI. MENTAL STATUS EXAMINATION: The patient presented to be alert and oriented, pleasant and superficiall y cooperative, intermittent eye contact. Speech was normal rate, tone, quality, and quantity. Mood described "I am depressed." Affect was constricted, but reactive, mood congruent. Thought process w as coherent and goal directed. Thought content: The patient denied visual, auditory, or tactile libby lucinations. Denied paranoid ideations. The patient denied thoughts of harming himself or others, d enied intent or plan. Insight and judgment are fair at present moment. Impulses are well controlled . This food writer had prolonged conversation with the case management. At present moment, the patient i s not medically cleared in order to go for inpatient rehab for his heroin as well as cocaine and aracely odiazepine addictions. IMPRESSION: Rule out substance-induced mood disorder. The patient has polysubstance abuse and depen dence, opioid addiction and intravenous drug use, stimulant use disorder as well as anxiolytics addic tion. The patient has multiple medical issues including bilateral lower extremity ulcers with skin i nfection, rule out osteomyelitis. The patient has diabetes, hypertension, peripheral arterial diseas e, peripheral neuropathy, history of depression which could be related to substance induced mood diso rder. PLAN: Continue antibiotics. Continue follow up with infectious disease as well as podiatry. The pa tient will undergo bone scan. The patient would benefit from a small dose of trazodone 50 mg at the nighttime for insomnia as well as for mood symptoms. The patient denied thoughts of harming himself or others. This food writer would recommend inpatient rehab, but if it is not possible, the patient needs to go to [facility]. The patient lives in [place]. [facility] has outpatient program. The patient would benefit from possible naltrexone therapy, but at the same time, patient needs to be off opioids for at least 4 weeks in order to start that medication. Meanwhile, continue current management. If patient has diarrhea, dyspepsia and withdrawal symptoms from opioids, Imodium should be given; if blood pressure will be elevated, clonidine and symptomatological treatment. Thi s food writer will sign off. Should you have any questions, give me a call back. Willow Moon MD cc: [phone] TT: 02/01/2017 11:22:29 Confirmation # [id number] Dictation # [id number] an
[2017-02-01 12:34] LABS: PH,URINE 6.5 (4.7-8.0); URINE APPEARANCE CLEAR (CLEAR); URINE BILIRUBIN NEGATIVE (NEGATIVE); URINE BLOOD SMALL (NEGATIVE); URINE COLOR YELLOW (YELLOW); URINE GLUCOSE (UA) 100 mg/dL (NEGATIVE); URINE KETONE NEGATIVE (NEGATIVE); URINE LEUKOCYTE ESTERASE NEGATIVE Leu/uL (NEGATIVE); URINE PROTEIN NEGATIVE mg/dL (<30 mg/dL); URINE UROBILINOGEN 0.2 E.U./dL (<1 E.U./dL)
[2017-02-01 12:57] LABS: URINE BACTERIA MOD (NEG); URINE WBC 0 - 2 /hpf (0-6)
[2017-02-01 12:58] LABS: URINE AMORPHOUS SEDIMENT FEW
--- NOTE | 2017-02-01 13:50 | US ---
PROCEDURE: Lower extremity MANOLO exam HISTORY: Peripheral vascular disease with pain and ulceration. PHYSICIAN(S): Stas Cowan MD. FINDINGS: The resting MANOLO's are normal: right, 1.16and left, 1.25. The brachial systolic pressures are symmetric. The high thigh pressures and waveforms are relatively normal. The calf PVR waveforms augment normally. No significant gradients are noted across the thighs. The ankle and metatarsal waveforms are relatively normal and symmetric. No significant pressure gradients are noted across the lower legs. IMPRESSION: 1. Relatively normal MANOLO and PVR examination at rest.
--- NOTE | 2017-02-01 13:54 | CP.PCM.PN ---
<Leo Witt - Last Filed: 02/01/17 13:51> Subjective - Date & Time of Evaluation Date of Evaluation: 02/01/17 Time of Evaluation: 13:51 - Subjective Subjective: Pt seen and examined at bedside. Pt more alert this morning than previous day. Pt complains of 2 episodes of diarrhea overnight. No blood was noted. Pt was also noted to be in increased pain. Otherwise, pt has no complaints. Denies CP, SOB, N/V/D. Objective - Vital Signs/Intake and Output Vital Signs (last 24 hours): Temp Pulse Resp BP Pulse Ox 99.6 F 44 L 20 145/61 99 02/01/17 06:00 02/01/17 06:00 02/01/17 06:00 02/01/17 06:00 02/01/17 06:00 Intake and Output: 02/01/17 02/01/17 06:59 18:59 Intake Total 120 0 Output Total 700 250 Balance -580 -250 - Medications Medications: Current Medications Collagenase (Santyl) 3 gm TOP DAILY [facility] Stop: 02/05/17 23:00 Last Admin: 02/01/17 09:00 Dose: 1 applic Heparin Sodium (Porcine) (Heparin) 5,000 units SC Q8 [facility] PRN Reason: Protocol Last Admin: 02/01/17 06:04 Dose: 5,000 units Vancomycin HCl (Vancomycin 1gm) 250 mls @ 167 mls/hr IVPB Q12H [facility] PRN Reason: Protocol Last Admin: 02/01/17 00:55 Dose: 167 mls/hr Sodium Chloride (Sodium Chloride 0.9%) 1,000 mls @ 100 mls/hr IV .Q10H [facility] Last Admin: 01/31/17 21:54 Dose: 100 mls/hr Piperacillin Sod/Tazobactam Sod (Zosyn 3.375 In Ns 100ml) 100 mls @ 200 mls/hr IVPB Q6 [facility] PRN Reason: Protocol Stop: 02/06/17 06:01 Last Admin: 02/01/17 06:04 Dose: 200 mls/hr Insulin Detemir (Levemir) 10 unit SC HS [facility] Last Admin: 01/31/17 21:51 Dose: 10 unit Insulin Human Lispro (Humalog Med) 0 units SC ACHS [facility] PRN Reason: Protocol Last Admin: 02/01/17 12:30 Dose: Not Given Insulin Human Lispro (Humalog) 3 units SC AC [facility] Last Admin: 02/01/17 12:30 Dose: Not Given Lorazepam (Ativan) 0.5 mg IVP Q6H PRN; Protocol PRN Reason: Anxiety Last Admin: 02/01/17 11:08 Dose: 0.5 mg Ondansetron HCl (Zofran Inj) 4 mg IVP Q4H PRN PRN Reason: Nausea/Vomiting Last Admin: 01/31/17 17:56 Dose: 4 mg Pantoprazole Sodium (Protonix Ec Tab) 40 mg PO 0630 [facility] Last Admin: 02/01/17 06:04 Dose: 40 mg Tramadol/Acetaminophen (Ultracet 37.5/325 Mg) 1 tab PO Q6H PRN PRN Reason: Pain, moderate (4-7) Trazodone HCl (Desyrel) 50 mg PO HS PRN PRN Reason: Insomnia - Labs Labs: 02/01/17 08:15 02/01/17 08:15 - Constitutional Appears: Well, No Acute Distress - Head Exam Head Exam: ATRAUMATIC, NORMAL INSPECTION, NORMOCEPHALIC - ENT Exam ENT Exam: Mucous Membranes Moist, Normal Exam - Respiratory Exam Respiratory Exam: Clear to Ausculation Bilateral, NORMAL BREATHING PATTERN. absent: Rhonchi, Wheezes - Cardiovascular Exam Cardiovascular Exam: RRR, +S1, +S2 - GI/Abdominal Exam GI & Abdominal Exam: Soft, Normal Bowel Sounds. absent: Tenderness - Extremities Exam Additional comments: B/L lower extremities bandaged, clean, dry, and intact. - Neurological Exam Neurological Exam: Alert, Awake, Oriented x3 - Psychiatric Exam Psychiatric exam: Normal Affect, Normal Mood - Skin Skin Exam: Normal Color, Warm Assessment and Plan - Assessment and Plan (Free Text) Plan: 61 y/o M with PMH of HTN, DM, polysubstance abuse with cocaine and heroin, and depression presents with b/l worsening leg ulcerations. Pt will undergo ceretec scan to evaluate for osteomyelitis because pt was unable to tolerate other diagnostic modalities. Pt will also need arterial dopplers of the lower extremities. Will await podiatry recommendations pending bone scan and arterial dopplers. 1. B/l lower ext ulcers - Rule out osteomyelitis pending ceretec scan - arterial doppler pending - ID following, on Vanco and Zosyn - Wound culture shows gram negative rods. Awaiting ID recs for med changes. - Podiatry following. 2. Heroin Withdrawal - Ativan 0.5 mg q6h - Psychiatry recommends naltrexone therapy, but pt must be opioid free for 4 weeks before treatment can start. 3. Hx of DM - Home insulin regimen continued - Glucose levels stable 4. Diarrhea - C. diff stool culture ordered - Stool sent for ova and parasites - UA and Urine cx ordered 4. PPX - Protonix - Heparin - Zofran Seen, reviewed, and discussed with attending. Eduar, PGY-1 <Trixie Lugo - Last Filed: 02/01/17 14:21> Objective - Vital Signs/Intake and Output Vital Signs (last 24 hours): Temp Pulse Resp BP Pulse Ox 99.6 F 44 L 20 145/61 99 02/01/17 06:00 02/01/17 06:00 02/01/17 06:00 02/01/17 06:00 02/01/17 06:00 Intake and Output: 02/01/17 02/01/17 06:59 18:59 Intake Total 120 0 Output Total 700 250 Balance -580 -250 - Medications Medications: Current Medications Collagenase (Santyl) 3 gm TOP DAILY [facility] Stop: 02/05/17 23:00 Last Admin: 02/01/17 09:00 Dose: 1 applic Heparin Sodium (Porcine) (Heparin) 5,000 units SC Q8 [facility] PRN Reason: Protocol Last Admin: 02/01/17 06:04 Dose: 5,000 units Vancomycin HCl (Vancomycin 1gm) 250 mls @ 167 mls/hr IVPB Q12H [facility] PRN Reason: Protocol Last Admin: 02/01/17 00:55 Dose: 167 mls/hr Sodium Chloride (Sodium Chloride 0.9%) 1,000 mls @ 100 mls/hr IV .Q10H [facility] Last Admin: 01/31/17 21:54 Dose: 100 mls/hr Piperacillin Sod/Tazobactam Sod (Zosyn 3.375 In Ns 100ml) 100 mls @ 200 mls/hr IVPB Q6 [facility] PRN Reason: Protocol Stop: 02/06/17 06:01 Last Admin: 02/01/17 06:04 Dose: 200 mls/hr Insulin Detemir (Levemir) 10 unit SC HS [facility] Last Admin: 01/31/17 21:51 Dose: 10 unit Insulin Human Lispro (Humalog Med) 0 units SC ACHS [facility] PRN Reason: Protocol Last Admin: 02/01/17 12:30 Dose: Not Given Insulin Human Lispro (Humalog) 3 units SC AC [facility] Last Admin: 02/01/17 12:30 Dose: Not Given Lorazepam (Ativan) 0.5 mg IVP Q6H PRN; Protocol PRN Reason: Anxiety Last Admin: 02/01/17 11:08 Dose: 0.5 mg Ondansetron HCl (Zofran Inj) 4 mg IVP Q4H PRN PRN Reason: Nausea/Vomiting Last Admin: 01/31/17 17:56 Dose: 4 mg Pantoprazole Sodium (Protonix Ec Tab) 40 mg PO 0630 [facility] Last Admin: 02/01/17 06:04 Dose: 40 mg Tramadol/Acetaminophen (Ultracet 37.5/325 Mg) 1 tab PO Q6H PRN PRN Reason: Pain, moderate (4-7) Trazodone HCl (Desyrel) 50 mg PO HS PRN PRN Reason: Insomnia - Labs Labs: 02/01/17 08:15 02/01/17 08:15 Attending/Attestation - Attestation I have personally seen and examined this patient.: Yes I have fully participated in the care of the patient.: Yes I have reviewed all pertinent clinical information, including history, physical exam and plan: Yes Notes (Text): 02/01/17 14:19 61 year old male with past medical history of diabetes, substance abuse and chronic leg ulcerations presented with complaint of worsening leg ulcerations. Venous dopplers, arterial dopplers and xrays were negative. Scan is ordered ( patient could not tolerate MRI) to rule out osteomyelitis. Continue with wound care as per podiatry and iv antibiotics as per ID. Will follow up on cultures so far growing gram negative rods. He was counselled on risks of continued substance abuse. Continue with supportive care for possible withdrawal symptoms. He is on zofran prn for nausea/vomiting and ativan prn for agitation. Psychiatry evaluation was appreciated. Stool studies ordered for diarrhea. If negative for c diff can start immodium. Will replete and repeat potassium. He is on levemir and insulin ss for diabetes. Hepatitis C ab was positive. Patient was informed of diagnoses and recommended to follow up at [facility] hepatitis clinic. Trixie Lugo MD Hospitalist.
[2017-02-01] MEDS: Sodium Chloride 0.9% 1,000 ML IV SCH ×2 (14:17→17:45)
--- NOTE | 2017-02-01 16:32 | CP.PCM.PN ---
Subjective - Date & Time of Evaluation Date of Evaluation: 02/01/17 Time of Evaluation: 09:35 - Subjective Subjective: Still with leg pain but a little less, no fevers overnight. Objective - Vital Signs/Intake and Output Vital Signs (last 24 hours): Temp Pulse Resp BP Pulse Ox 98.1 F 52 L 20 164/79 H 99 01/31/17 16:00 01/31/17 16:00 01/31/17 16:00 01/31/17 16:00 01/31/17 16:00 Intake and Output: 02/01/17 02/01/17 06:59 18:59 Intake Total 120 0 Output Total 700 250 Balance -580 -250 - Medications Medications: Current Medications Collagenase (Santyl) 3 gm TOP DAILY [facility] Stop: 02/05/17 23:00 Last Admin: 01/31/17 12:46 Dose: 1 applic Heparin Sodium (Porcine) (Heparin) 5,000 units SC Q8 [facility] PRN Reason: Protocol Last Admin: 02/01/17 06:04 Dose: 5,000 units Vancomycin HCl (Vancomycin 1gm) 250 mls @ 167 mls/hr IVPB Q12H [facility] PRN Reason: Protocol Last Admin: 02/01/17 00:55 Dose: 167 mls/hr Sodium Chloride (Sodium Chloride 0.9%) 1,000 mls @ 100 mls/hr IV .Q10H [facility] Last Admin: 01/31/17 21:54 Dose: 100 mls/hr Piperacillin Sod/Tazobactam Sod (Zosyn 3.375 In Ns 100ml) 100 mls @ 200 mls/hr IVPB Q6 [facility] PRN Reason: Protocol Stop: 02/06/17 06:01 Last Admin: 02/01/17 06:04 Dose: 200 mls/hr Insulin Detemir (Levemir) 10 unit SC HS [facility] Last Admin: 01/31/17 21:51 Dose: 10 unit Insulin Human Lispro (Humalog Med) 0 units SC ACHS [facility] PRN Reason: Protocol Last Admin: 02/01/17 08:43 Dose: 1 units Insulin Human Lispro (Humalog) 3 units SC AC [facility] Last Admin: 02/01/17 08:43 Dose: 3 units Lorazepam (Ativan) 0.5 mg IVP Q6H PRN; Protocol PRN Reason: Anxiety Last Admin: 02/01/17 03:52 Dose: 0.5 mg Ondansetron HCl (Zofran Inj) 4 mg IVP Q4H PRN PRN Reason: Nausea/Vomiting Last Admin: 01/31/17 17:56 Dose: 4 mg Pantoprazole Sodium (Protonix Ec Tab) 40 mg PO 0630 [facility] Last Admin: 02/01/17 06:04 Dose: 40 mg Tramadol HCl (Ultram) 50 mg PO TID [facility] Last Admin: 01/31/17 17:57 Dose: 50 mg - Labs Labs: 02/01/17 08:15 02/01/17 08:15 - Constitutional Appears: Non-toxic, No Acute Distress - Head Exam Head Exam: NORMAL INSPECTION - Neck Exam Neck Exam: absent: Lymphadenopathy, Meningismus - Respiratory Exam Respiratory Exam: Decreased Breath Sounds - Cardiovascular Exam Cardiovascular Exam: +S1, +S2 - GI/Abdominal Exam GI & Abdominal Exam: Soft. absent: Tenderness - Extremities Exam Additional comments: both legs with dry dressings in place Assessment and Plan - Assessment and Plan (Free Text) Plan: Assessment Bilateral lower extremity ulcers with skin and skin structure infection R/O osteomyelitis DM HTN peripheral arterial disease peripheral neuropathy history of substance abuse history of depression Plan continue Vancomycin and Zosyn (day 2=3) pending final blood, wound cx results Reviewed Podiatry evaluation - patient was unable to do MRI; patient to undergo bone scan/WBC scan Will follow clinically Discussed with Dr. Lugo
[2017-02-01] MEDS: TraMADol/Apap 37.5/325 mg Tab PO PRN (17:28)
[2017-02-01] MEDS: Insulin Detemir 100 units/ml Vial (Levemir) SC SCH (21:25)
[2017-02-02] MEDS: Vancomycin 1gm in NS 250ml 250 ML IVPB SCH (00:32)
[2017-02-02] MEDS: TraMADol/Apap 37.5/325 mg Tab PO PRN ×3 (05:42→18:12)
[2017-02-02] MEDS: Piperacillin/Tazobact 3.375 gm 100 ML IVPB SCH (05:43)
[2017-02-02] MEDS: Pantoprazole 40 mg EC Tab PO SCH (05:43)
[2017-02-02] MEDS: Insulin Lispro (humaLOG) MEDIUM Coverage SC SCH ×4 (08:58→21:47)
[2017-02-02] MEDS: Insulin Lispro 1 UNITS/0.01 ML SC SCH ×3 (08:59→18:02)
[2017-02-02] MEDS: Sodium Chloride 0.9% 1,000 ML IV SCH ×2 (08:59→13:20)
[2017-02-02] MEDS: cefTRIAXone 1 gm 100 ML IVPB SCH (12:01)
[2017-02-02] MEDS: Collagenase 250 Units/gm Ointment(30 gm) TOP SCH (12:02)
--- NOTE | 2017-02-02 14:21 | CP.PCM.PN ---
<Kiki Monae - Last Filed: 02/02/17 14:19> Subjective - Date & Time of Evaluation Date of Evaluation: 02/02/17 Time of Evaluation: 14:19 - Subjective Subjective: 61 y/o male seen at bedside for ulcerations of feet and legs bilaterally.Patient went for WBC tagged indium bone scan yesterday and arterial doppler studies. Patient appears in NAD and AAOx3. Patient has mild pain in his legs. Patient's dressings intact to legs. Patient denies any acute events overnight. Patient denies n/f/v/c/d/sob Objective - Vital Signs/Intake and Output Vital Signs (last 24 hours): Temp Pulse Resp BP Pulse Ox 98.7 F 56 L 20 162/82 H 100 02/02/17 08:34 02/02/17 08:34 02/02/17 08:34 02/02/17 08:34 02/02/17 08:34 Intake and Output: 02/02/17 02/02/17 06:59 18:59 Intake Total 240 Output Total 1400 Balance -1160 - Medications Medications: Current Medications Collagenase (Santyl) 3 gm TOP DAILY [facility] Stop: 02/05/17 23:00 Last Admin: 02/02/17 12:02 Dose: 1 applic Heparin Sodium (Porcine) (Heparin) 5,000 units SC Q8 [facility] PRN Reason: Protocol Last Admin: 02/02/17 05:43 Dose: 5,000 units Sodium Chloride (Sodium Chloride 0.9%) 1,000 mls @ 100 mls/hr IV .Q10H [facility] Last Admin: 02/02/17 13:20 Dose: Not Given Ceftriaxone Sodium (Rocephin 1 Gram Ivpb) 100 mls @ 100 mls/hr IVPB DAILY [facility] PRN Reason: Protocol Last Admin: 02/02/17 12:01 Dose: 100 mls/hr Insulin Detemir (Levemir) 10 unit SC HS [facility] Last Admin: 02/01/17 21:25 Dose: Not Given Insulin Human Lispro (Humalog Med) 0 units SC ACHS [facility] PRN Reason: Protocol Last Admin: 02/02/17 11:59 Dose: 1 units Insulin Human Lispro (Humalog) 3 units SC AC [facility] Last Admin: 02/02/17 11:59 Dose: 3 units Lorazepam (Ativan) 0.5 mg IVP Q6H PRN; Protocol PRN Reason: Anxiety Last Admin: 02/01/17 11:08 Dose: 0.5 mg Ondansetron HCl (Zofran Inj) 4 mg IVP Q4H PRN PRN Reason: Nausea/Vomiting Last Admin: 01/31/17 17:56 Dose: 4 mg Pantoprazole Sodium (Protonix Ec Tab) 40 mg PO 0630 [facility] Last Admin: 02/02/17 05:43 Dose: 40 mg Tramadol/Acetaminophen (Ultracet 37.5/325 Mg) 1 tab PO Q6H PRN PRN Reason: Pain, moderate (4-7) Last Admin: 02/02/17 12:00 Dose: 1 tab Trazodone HCl (Desyrel) 50 mg PO HS PRN PRN Reason: Insomnia Last Admin: 02/01/17 21:23 Dose: 50 mg - Labs Labs: 02/01/17 08:15 02/01/17 08:15 - Constitutional Appears: Well, Non-toxic, No Acute Distress - Extremities Exam Additional comments: Vasc: nonpalpable pedal pulses bilaterally, +2 nonpitting edema to lower extremities b/l, TG wnl, CFT < 3 sec to all digits neuro: grossly diminished derm: right lower leg presents with 2 large ulcerations at the anterior aspect of leg- base of the ulceration is mixture of granular and fibrotic tissue, no purulence, no drainage, no underlying abscess, no malodor, no probe to bone left lower extremity presents with 2 posterior ulcerations measuring 4.4cm x 3.6cmx 0.2cm. both ulcerations are granular with serous drainage- no probe to bone, no purulence bilateral legs show resolved wounds that are no longer open or draining - Neurological Exam Neurological Exam: Alert, Awake, Oriented x3 - Psychiatric Exam Psychiatric exam: Normal Affect, Normal Mood Assessment and Plan - Assessment and Plan (Free Text) Assessment: 61 y/o male seen at bedside for bilateral lower extremity ulcerations (espinoza grade 2) with accompanying cellulitis Plan: patient evaluated discussed in detail with attending Dr. Singh labs and vitals reviewed; afebrile wound cx; prelim= serratia marscesens continue IV abx f/u ceretec bone scan arterial dopplers-reatively normal MANOLO /PVR cleansed wounds with saline, applied santyl, DSD JAMES to bilateral lower extremities podiatry will continue to monitor while patient remains in house <Uriel Singh - Last Filed: 02/02/17 14:45> Objective - Vital Signs/Intake and Output Vital Signs (last 24 hours): Temp Pulse Resp BP Pulse Ox 98.7 F 56 L 20 162/82 H 100 02/02/17 08:34 02/02/17 08:34 02/02/17 08:34 02/02/17 08:34 02/02/17 08:34 Intake and Output: 02/02/17 02/02/17 06:59 18:59 Intake Total 240 120 Output Total 1400 Balance -1160 120 - Medications Medications: Current Medications Collagenase (Santyl) 3 gm TOP DAILY [facility] Stop: 02/05/17 23:00 Last Admin: 02/02/17 12:02 Dose: 1 applic Heparin Sodium (Porcine) (Heparin) 5,000 units SC Q8 [facility] PRN Reason: Protocol Last Admin: 02/02/17 05:43 Dose: 5,000 units Sodium Chloride (Sodium Chloride 0.9%) 1,000 mls @ 100 mls/hr IV .Q10H [facility] Last Admin: 02/02/17 13:20 Dose: Not Given Ceftriaxone Sodium (Rocephin 1 Gram Ivpb) 100 mls @ 100 mls/hr IVPB DAILY [facility] PRN Reason: Protocol Last Admin: 02/02/17 12:01 Dose: 100 mls/hr Insulin Detemir (Levemir) 10 unit SC HS [facility] Last Admin: 02/01/17 21:25 Dose: Not Given Insulin Human Lispro (Humalog Med) 0 units SC ACHS [facility] PRN Reason: Protocol Last Admin: 02/02/17 11:59 Dose: 1 units Insulin Human Lispro (Humalog) 3 units SC AC [facility] Last Admin: 02/02/17 11:59 Dose: 3 units Lorazepam (Ativan) 0.5 mg IVP Q6H PRN; Protocol PRN Reason: Anxiety Last Admin: 02/01/17 11:08 Dose: 0.5 mg Ondansetron HCl (Zofran Inj) 4 mg IVP Q4H PRN PRN Reason: Nausea/Vomiting Last Admin: 01/31/17 17:56 Dose: 4 mg Pantoprazole Sodium (Protonix Ec Tab) 40 mg PO 0630 [facility] Last Admin: 02/02/17 05:43 Dose: 40 mg Tramadol/Acetaminophen (Ultracet 37.5/325 Mg) 1 tab PO Q6H PRN PRN Reason: Pain, moderate (4-7) Last Admin: 02/02/17 12:00 Dose: 1 tab Trazodone HCl (Desyrel) 50 mg PO HS PRN PRN Reason: Insomnia Last Admin: 02/01/17 21:23 Dose: 50 mg - Labs Labs: 02/01/17 08:15 02/01/17 08:15 Attending/Attestation - Attestation I have personally seen and examined this patient.: Yes I have fully participated in the care of the patient.: Yes I have reviewed all pertinent clinical information, including history, physical exam and plan: Yes
--- NOTE | 2017-02-02 14:40 | CP.PCM.PN ---
<Leo Witt - Last Filed: 02/02/17 14:36> Subjective - Date & Time of Evaluation Date of Evaluation: 02/02/17 Time of Evaluation: 14:37 - Subjective Subjective: Pt seen and examined at bedside. Pt complains of nausea and vomiting overnight. Pt had 2 nonbloody episodes of emesis. Pt also admits to several episodes of diarrhea. Pt is hypertensive overnight. Pt denies CP, SOB, fever, chills. Objective - Vital Signs/Intake and Output Vital Signs (last 24 hours): Temp Pulse Resp BP Pulse Ox 98.7 F 56 L 20 162/82 H 100 02/02/17 08:34 02/02/17 08:34 02/02/17 08:34 02/02/17 08:34 02/02/17 08:34 Intake and Output: 02/02/17 02/02/17 06:59 18:59 Intake Total 240 Output Total 1400 Balance -1160 - Medications Medications: Current Medications Collagenase (Santyl) 3 gm TOP DAILY [facility] Stop: 02/05/17 23:00 Last Admin: 02/02/17 12:02 Dose: 1 applic Heparin Sodium (Porcine) (Heparin) 5,000 units SC Q8 [facility] PRN Reason: Protocol Last Admin: 02/02/17 05:43 Dose: 5,000 units Sodium Chloride (Sodium Chloride 0.9%) 1,000 mls @ 100 mls/hr IV .Q10H [facility] Last Admin: 02/02/17 13:20 Dose: Not Given Ceftriaxone Sodium (Rocephin 1 Gram Ivpb) 100 mls @ 100 mls/hr IVPB DAILY [facility] PRN Reason: Protocol Last Admin: 02/02/17 12:01 Dose: 100 mls/hr Insulin Detemir (Levemir) 10 unit SC HS [facility] Last Admin: 02/01/17 21:25 Dose: Not Given Insulin Human Lispro (Humalog Med) 0 units SC ACHS [facility] PRN Reason: Protocol Last Admin: 02/02/17 11:59 Dose: 1 units Insulin Human Lispro (Humalog) 3 units SC AC [facility] Last Admin: 02/02/17 11:59 Dose: 3 units Lorazepam (Ativan) 0.5 mg IVP Q6H PRN; Protocol PRN Reason: Anxiety Last Admin: 02/01/17 11:08 Dose: 0.5 mg Ondansetron HCl (Zofran Inj) 4 mg IVP Q4H PRN PRN Reason: Nausea/Vomiting Last Admin: 01/31/17 17:56 Dose: 4 mg Pantoprazole Sodium (Protonix Ec Tab) 40 mg PO 0630 [facility] Last Admin: 02/02/17 05:43 Dose: 40 mg Tramadol/Acetaminophen (Ultracet 37.5/325 Mg) 1 tab PO Q6H PRN PRN Reason: Pain, moderate (4-7) Last Admin: 02/02/17 12:00 Dose: 1 tab Trazodone HCl (Desyrel) 50 mg PO HS PRN PRN Reason: Insomnia Last Admin: 02/01/17 21:23 Dose: 50 mg - Labs Labs: 02/01/17 08:15 02/01/17 08:15 - Constitutional Appears: Well, No Acute Distress - ENT Exam ENT Exam: Mucous Membranes Moist, Normal Exam - Respiratory Exam Respiratory Exam: Clear to Ausculation Bilateral, NORMAL BREATHING PATTERN. absent: Rhonchi, Wheezes - Cardiovascular Exam Cardiovascular Exam: RRR, +S1, +S2 - GI/Abdominal Exam GI & Abdominal Exam: Soft, Normal Bowel Sounds. absent: Tenderness - Extremities Exam Extremities Exam: absent: Calf Tenderness Additional comments: B/l lower ext bandaged, clean, dry, and intact. - Neurological Exam Neurological Exam: Alert, Awake, Oriented x3 - Psychiatric Exam Psychiatric exam: Normal Affect, Normal Mood - Skin Skin Exam: Intact, Normal Color, Warm Assessment and Plan - Assessment and Plan (Free Text) Plan: 61 y/o M with PMH of HTN, DM, polysubstance abuse of cocaine and heroin, and depression presents with b/l worsening leg ulcerations. Pt refusing all labs today. Pt underwent ceretec scan, which is still pending final read. Pt had arterial dopplers performed yesterday, which were normal. Pt has also been found to have Hep C, pt will follow up with [facility] [place] hepatic clinic. Wound culture positive for Serratia marcesens. 1. B/l lower ext ulcers - Ceretec scan pending - arterial doppler negative - ID following, on Vanco and Zosyn - Wound culture shows Serratia marcesens. Abx change pending ID recs - Podiatry following. 2. HTN - Lisinopril 5 mg added - Will continue to monitor 3. Hx of DM - Home insulin regimen continued - Glucose levels stable 4. Diarrhea - C. diff stool culture ordered - Stool sent for ova and parasites - UA and Urine cx ordered 5. Substance abuse - Counseled on benefits of cessation 6. Hep C - F/u outpt with [facility] [place] liver clinic - LFTs stable from previous lab work 6. PPX - Protonix - Heparin - Zofran Seen, reviewed, and discussed with attending. Eduar PGY-1 <Trixie Lugo - Last Filed: 02/02/17 15:04> Objective - Vital Signs/Intake and Output Vital Signs (last 24 hours): Temp Pulse Resp BP Pulse Ox 98.7 F 56 L 20 162/82 H 100 02/02/17 08:34 02/02/17 08:34 02/02/17 08:34 02/02/17 08:34 02/02/17 08:34 Intake and Output: 02/02/17 02/02/17 06:59 18:59 Intake Total 240 120 Output Total 1400 Balance -1160 120 - Medications Medications: Current Medications Collagenase (Santyl) 3 gm TOP DAILY [facility] Stop: 02/05/17 23:00 Last Admin: 02/02/17 12:02 Dose: 1 applic Heparin Sodium (Porcine) (Heparin) 5,000 units SC Q8 [facility] PRN Reason: Protocol Last Admin: 02/02/17 05:43 Dose: 5,000 units Sodium Chloride (Sodium Chloride 0.9%) 1,000 mls @ 100 mls/hr IV .Q10H [facility] Last Admin: 02/02/17 13:20 Dose: Not Given Ceftriaxone Sodium (Rocephin 1 Gram Ivpb) 100 mls @ 100 mls/hr IVPB DAILY [facility] PRN Reason: Protocol Last Admin: 02/02/17 12:01 Dose: 100 mls/hr Insulin Detemir (Levemir) 10 unit SC HS [facility] Last Admin: 02/01/17 21:25 Dose: Not Given Insulin Human Lispro (Humalog Med) 0 units SC ACHS [facility] PRN Reason: Protocol Last Admin: 02/02/17 11:59 Dose: 1 units Insulin Human Lispro (Humalog) 3 units SC AC [facility] Last Admin: 02/02/17 11:59 Dose: 3 units Lisinopril (Zestril) 5 mg PO DAILY [facility] Lorazepam (Ativan) 0.5 mg IVP Q6H PRN; Protocol PRN Reason: Anxiety Last Admin: 02/01/17 11:08 Dose: 0.5 mg Ondansetron HCl (Zofran Inj) 4 mg IVP Q4H PRN PRN Reason: Nausea/Vomiting Last Admin: 01/31/17 17:56 Dose: 4 mg Pantoprazole Sodium (Protonix Ec Tab) 40 mg PO 0630 [facility] Last Admin: 02/02/17 05:43 Dose: 40 mg Tramadol/Acetaminophen (Ultracet 37.5/325 Mg) 1 tab PO Q6H PRN PRN Reason: Pain, moderate (4-7) Last Admin: 02/02/17 12:00 Dose: 1 tab Trazodone HCl (Desyrel) 50 mg PO HS PRN PRN Reason: Insomnia Last Admin: 02/01/17 21:23 Dose: 50 mg - Labs Labs: 02/01/17 08:15 02/01/17 08:15 Attending/Attestation - Attestation I have personally seen and examined this patient.: Yes I have fully participated in the care of the patient.: Yes I have reviewed all pertinent clinical information, including history, physical exam and plan: Yes Notes (Text): 02/02/17 15:02 61 year old male with past medical history of diabetes, substance abuse and chronic leg ulcerations presented with complaint of worsening leg ulcerations. Venous dopplers, arterial dopplers and xrays were negative. Scan was done to rule out osteomyelitis yesterday and the reading is pending. Continue with wound care as per podiatry and iv antibiotics as per ID. Wound culture is growing Serratia Marcescens and antibiotics were adjusted by ID. He was counselled on risks of continued substance abuse. Continue with supportive care for possible withdrawal symptoms. He is on zofran prn for nausea/vomiting and ativan prn for agitation. Stool studies pending for diarrhea. If negative for C Diff can start prn immodium. Psychiatry evaluation was appreciated. He is on levemir and insulin ss for diabetes and started on lisinopril for hypertension. Recommended to follow up at [facility] [place] hepatitis clinic for hepatitis C. Trixie Lugo MD Hospitalist.
--- NOTE | 2017-02-02 15:41 | CP.PCM.PN ---
Subjective - Date & Time of Evaluation Date of Evaluation: 02/02/17 Time of Evaluation: 09:35 - Subjective Subjective: Afebrile, not in distress, no fevers overnight, less pain in the legs. Objective - Vital Signs/Intake and Output Vital Signs (last 24 hours): Temp Pulse Resp BP Pulse Ox 98.7 F 56 L 20 162/82 H 100 02/02/17 08:34 02/02/17 08:34 02/02/17 08:34 02/02/17 08:34 02/02/17 08:34 Intake and Output: 02/02/17 02/02/17 06:59 18:59 Intake Total 240 Output Total 1400 Balance -1160 - Medications Medications: Current Medications Collagenase (Santyl) 3 gm TOP DAILY [facility] Stop: 02/05/17 23:00 Last Admin: 02/01/17 09:00 Dose: 1 applic Heparin Sodium (Porcine) (Heparin) 5,000 units SC Q8 [facility] PRN Reason: Protocol Last Admin: 02/02/17 05:43 Dose: 5,000 units Sodium Chloride (Sodium Chloride 0.9%) 1,000 mls @ 100 mls/hr IV .Q10H [facility] Last Admin: 02/02/17 08:59 Dose: 100 mls/hr Ceftriaxone Sodium (Rocephin 1 Gram Ivpb) 100 mls @ 100 mls/hr IVPB DAILY [facility] PRN Reason: Protocol Insulin Detemir (Levemir) 10 unit SC HS [facility] Last Admin: 02/01/17 21:25 Dose: Not Given Insulin Human Lispro (Humalog Med) 0 units SC ACHS [facility] PRN Reason: Protocol Last Admin: 02/02/17 08:58 Dose: 1 units Insulin Human Lispro (Humalog) 3 units SC AC [facility] Last Admin: 02/02/17 08:59 Dose: 3 units Lorazepam (Ativan) 0.5 mg IVP Q6H PRN; Protocol PRN Reason: Anxiety Last Admin: 02/01/17 11:08 Dose: 0.5 mg Ondansetron HCl (Zofran Inj) 4 mg IVP Q4H PRN PRN Reason: Nausea/Vomiting Last Admin: 01/31/17 17:56 Dose: 4 mg Pantoprazole Sodium (Protonix Ec Tab) 40 mg PO 0630 [facility] Last Admin: 02/02/17 05:43 Dose: 40 mg Tramadol/Acetaminophen (Ultracet 37.5/325 Mg) 1 tab PO Q6H PRN PRN Reason: Pain, moderate (4-7) Last Admin: 02/02/17 05:42 Dose: 1 tab Trazodone HCl (Desyrel) 50 mg PO HS PRN PRN Reason: Insomnia Last Admin: 02/01/17 21:23 Dose: 50 mg - Labs Labs: 02/01/17 08:15 02/01/17 08:15 - Constitutional Appears: Non-toxic, No Acute Distress - Head Exam Head Exam: NORMAL INSPECTION - Respiratory Exam Respiratory Exam: Decreased Breath Sounds - Cardiovascular Exam Cardiovascular Exam: +S1, +S2 - GI/Abdominal Exam GI & Abdominal Exam: Soft. absent: Tenderness - Extremities Exam Additional comments: both legs with dry dressings in place Assessment and Plan - Assessment and Plan (Free Text) Plan: Assessment Bilateral lower extremity ulcers with skin and skin structure infection R/O osteomyelitis DM HTN peripheral arterial disease peripheral neuropathy history of substance abuse history of depression Plan changed antibiotics to Rocephin (day 4) Reviewed Podiatry evaluation - patient was unable to do MRI; awaiting WBC scan results Will follow clinically Discussed with Dr. Lugo previously
[2017-02-02] MEDS: Insulin Detemir 100 units/ml Vial (Levemir) SC SCH (21:48)
[2017-02-03] MEDS: Pantoprazole 40 mg EC Tab PO SCH (05:29)
[2017-02-03] MEDS: Insulin Lispro (humaLOG) MEDIUM Coverage SC SCH ×4 (07:57→21:25)
[2017-02-03] MEDS: TraMADol/Apap 37.5/325 mg Tab PO PRN ×2 (08:04→17:34)
[2017-02-03] MEDS: Insulin Lispro 1 UNITS/0.01 ML SC SCH ×3 (08:08→17:30)
--- NOTE | 2017-02-03 08:37 | CP.PCM.PN ---
<Juan C Gomez - Last Filed: 02/03/17 09:44> Subjective - Date & Time of Evaluation Date of Evaluation: 02/03/17 Time of Evaluation: 07:30 - Subjective Subjective: 61 y/o male seen at bedside for ulcerations of feet and legs bilaterally. Patient appears in NAD and AAOx3. Patient has mild pain in his legs. Patient's dressings intact to legs. Patient denies any acute events overnight. Patient denies n/f/v/c/d/sob Objective - Vital Signs/Intake and Output Vital Signs (last 24 hours): Temp Pulse Resp BP Pulse Ox 99.0 F 70 20 162/96 H 97 02/03/17 06:00 02/03/17 06:00 02/03/17 06:00 02/03/17 06:00 02/03/17 06:00 Intake and Output: 02/03/17 02/03/17 06:59 18:59 Intake Total 320 Output Total 350 Balance -30 - Medications Medications: Current Medications Collagenase (Santyl) 3 gm TOP DAILY [facility] Stop: 02/05/17 23:00 Last Admin: 02/02/17 12:02 Dose: 1 applic Heparin Sodium (Porcine) (Heparin) 5,000 units SC Q8 [facility] PRN Reason: Protocol Last Admin: 02/03/17 05:28 Dose: 5,000 units Hydralazine HCl (Apresoline) 10 mg IVP Q6 PRN PRN Reason: Systolic Blood Pressure Last Admin: 02/02/17 19:28 Dose: 10 mg Ceftriaxone Sodium (Rocephin 1 Gram Ivpb) 100 mls @ 100 mls/hr IVPB DAILY [facility] PRN Reason: Protocol Last Admin: 02/02/17 12:01 Dose: 100 mls/hr Insulin Detemir (Levemir) 10 unit SC HS [facility] Last Admin: 02/02/17 21:48 Dose: Not Given Insulin Human Lispro (Humalog Med) 0 units SC ACHS [facility] PRN Reason: Protocol Last Admin: 02/03/17 07:57 Dose: Not Given Insulin Human Lispro (Humalog) 3 units SC AC [facility] Last Admin: 02/03/17 08:08 Dose: 3 units Lisinopril (Zestril) 5 mg PO DAILY [facility] Last Admin: 02/02/17 15:02 Dose: 5 mg Lorazepam (Ativan) 0.5 mg IVP Q6H PRN; Protocol PRN Reason: Anxiety Last Admin: 02/01/17 11:08 Dose: 0.5 mg Ondansetron HCl (Zofran Inj) 4 mg IVP Q4H PRN PRN Reason: Nausea/Vomiting Last Admin: 02/02/17 22:51 Dose: 4 mg Pantoprazole Sodium (Protonix Ec Tab) 40 mg PO 0630 [facility] Last Admin: 02/03/17 05:29 Dose: 40 mg Tramadol/Acetaminophen (Ultracet 37.5/325 Mg) 1 tab PO Q6H PRN PRN Reason: Pain, moderate (4-7) Last Admin: 02/03/17 08:04 Dose: 1 tab Trazodone HCl (Desyrel) 50 mg PO HS PRN PRN Reason: Insomnia Last Admin: 02/02/17 21:06 Dose: 50 mg - Labs Labs: 02/01/17 08:15 02/01/17 08:15 - Constitutional Appears: Well, Non-toxic, No Acute Distress - Extremities Exam Additional comments: VASC: Non-palpable pedal pulses bilaterally, +1 non-pitting edema to lower extremities b/l, TG wnl, CFT < 3 sec to all digits NEURO: grossly diminished DERM: Right lower leg presents with 2 large ulcerations at the anterior aspect of leg- base of the ulceration is mixture of granular and fibrotic tissue, no purulence, no drainage, no underlying abscess, no malodor, no probe to bone left lower extremity presents with 2 posterior ulcerations measuring 4.4cm x 3.6cmx 0.2cm. both ulcerations are granular with serous drainage- no probe to bone, no purulence bilateral legs show resolved wounds that are no longer open or draining MUSK: No Gross deformities noted, pedal muscle strength graded 5/5 to 4 major pedal muscle groups. - Neurological Exam Neurological Exam: Alert, Awake, Oriented x3 - Psychiatric Exam Psychiatric exam: Normal Affect, Normal Mood Assessment and Plan - Assessment and Plan (Free Text) Assessment: 61 y/o male seen at bedside for bilateral lower extremity ulcerations (espinoza grade 2) with accompanying resolving cellulitis Plan: Patient evaluated & treated at bedside with attending Dr. Singh present. Labs and vitals reviewed; afebrile Wound cx results show: serratia marscesens Continue IV abx per ID. -Venous dopplers, arterial dopplers and xrays were negative. -Ceretec bone scan results- pending -Cleansed wounds with saline, applied santyl, DSD JAMES to bilateral lower extremities Podiatry will continue to monitor while patient remains in house <Uriel Singh - Last Filed: 02/06/17 12:18> Objective - Vital Signs/Intake and Output Vital Signs (last 24 hours): Temp Pulse Resp BP Pulse Ox 99.3 F 56 L 18 140/74 98 02/06/17 06:00 02/06/17 09:18 02/06/17 06:00 02/06/17 09:18 02/06/17 06:00 Intake and Output: 02/06/17 02/06/17 06:59 18:59 Intake Total 400 Output Total 400 Balance 0 - Medications Medications: Current Medications Heparin Sodium (Porcine) (Heparin) 5,000 units SC Q8 [facility] PRN Reason: Protocol Last Admin: 02/06/17 05:19 Dose: 5,000 units Hydralazine HCl (Apresoline) 10 mg IVP Q6 PRN PRN Reason: Systolic Blood Pressure Last Admin: 02/02/17 19:28 Dose: 10 mg Ceftriaxone Sodium (Rocephin 1 Gram Ivpb) 100 mls @ 100 mls/hr IVPB DAILY [facility] PRN Reason: Protocol Last Admin: 02/06/17 09:27 Dose: 100 mls/hr Insulin Detemir (Levemir) 10 unit SC HS [facility] Last Admin: 02/05/17 21:57 Dose: 10 unit Insulin Human Lispro (Humalog Med) 0 units SC ACHS [facility] PRN Reason: Protocol Last Admin: 02/06/17 08:06 Dose: 1 units Insulin Human Lispro (Humalog) 3 units SC AC [facility] Last Admin: 02/06/17 08:07 Dose: 3 units Lisinopril (Zestril) 5 mg PO DAILY [facility] Last Admin: 02/06/17 09:18 Dose: 5 mg Loperamide HCl (Imodium) 2 mg PO QID PRN PRN Reason: Diarrhea Last Admin: 02/06/17 05:18 Dose: 2 mg Lorazepam (Ativan) 0.5 mg IVP Q6H PRN; Protocol PRN Reason: Anxiety Last Admin: 02/01/17 11:08 Dose: 0.5 mg Ondansetron HCl (Zofran Inj) 4 mg IVP Q4H PRN PRN Reason: Nausea/Vomiting Last Admin: 02/02/17 22:51 Dose: 4 mg Pantoprazole Sodium (Protonix Ec Tab) 40 mg PO 0630 [facility] Last Admin: 02/06/17 05:30 Dose: 40 mg Tramadol/Acetaminophen (Ultracet 37.5/325 Mg) 1 tab PO Q6H PRN PRN Reason: Pain, moderate (4-7) Last Admin: 02/06/17 05:30 Dose: 1 tab Trazodone HCl (Desyrel) 50 mg PO HS PRN PRN Reason: Insomnia Last Admin: 02/05/17 22:09 Dose: 50 mg - Labs Labs: 02/06/17 06:00 02/06/17 06:00 Attending/Attestation - Attestation I have personally seen and examined this patient.: Yes I have fully participated in the care of the patient.: Yes I have reviewed all pertinent clinical information, including history, physical exam and plan: Yes
[2017-02-03] MEDS: Collagenase 250 Units/gm Ointment(30 gm) TOP SCH (09:00)
[2017-02-03 09:11] LABS: ADD MANUAL DIFF? NO
[2017-02-03 09:18] LABS: BASO # 0.02 K/mm3 (0.0-2.0); BASO % 0.2 % (0.0-3.0); EOS % 0.1 % (1.5-5.0); GRAN % 71.8 % (50.0-68.0); HEMATOCRIT 42.7 % (42.0-52.0); LYMPH % 22.9 % (22.0-35.0); MEAN CELL VOLUME 84.2 fL (80.0-105.0); MEAN CORPUSCULAR HEMOGLOBIN 31.2 pg (25.0-35.0); MEAN PLATELET VOLUME 10.2 fl (7.0-11.0); MONO # 0.4 (0.1-0.6); PLATELET COUNT 250 10^3/uL (120.0-450.0); RED CELL DISTRIBUTION WIDTH 12.1 % (11.5-14.5); WHITE BLOOD COUNT 8.8 10^3/ul (4.5-11.0)
[2017-02-03 09:22] LABS: ALB/GLOB RATIO 0.8 (1.1-1.8); ALKALINE PHOSPHATASE 68 U/L (38-133); ALT/SGPT 25 U/L (7-56); AST/SGOT 33 U/L (15-59); BILIRUBIN,TOTAL 0.9 mg/dL (0.2-1.3); BLOOD UREA NITROGEN 13 mg/dL (7-21); CARBON DIOXIDE 22 mmol/L (21-33); CHLORIDE 100 mmol/L (95-110); GFR AFRICAN-AMERICAN > 60; GLUCOSE,RANDOM 181 mg/dL (70-110); POTASSIUM 3.1 mmol/L (3.6-5.0); SODIUM 134 mmol/L (132-148); TOTAL PROTEIN 8.4 g/dL (5.8-8.3)
[2017-02-03] MEDS: cefTRIAXone 1 gm 100 ML IVPB SCH (09:31)
[2017-02-03] MEDS: Potassium Chloride 20 mEq 100 ML IVPB SCH ×2 (12:17→15:52)
--- NOTE | 2017-02-03 16:23 | CP.PCM.PN ---
Subjective - Date & Time of Evaluation Date of Evaluation: 02/03/17 Time of Evaluation: 10:55 - Subjective Subjective: Comfortable, afebrile, not in distress, less pain in the legs. Objective - Vital Signs/Intake and Output Vital Signs (last 24 hours): Temp Pulse Resp BP Pulse Ox 99.0 F 70 20 162/96 H 97 02/03/17 06:00 02/03/17 06:00 02/03/17 06:00 02/03/17 06:00 02/03/17 06:00 Intake and Output: 02/03/17 02/03/17 06:59 18:59 Intake Total 320 Output Total 350 Balance -30 - Medications Medications: Current Medications Collagenase (Santyl) 3 gm TOP DAILY [facility] Stop: 02/05/17 23:00 Last Admin: 02/02/17 12:02 Dose: 1 applic Heparin Sodium (Porcine) (Heparin) 5,000 units SC Q8 [facility] PRN Reason: Protocol Last Admin: 02/03/17 05:28 Dose: 5,000 units Hydralazine HCl (Apresoline) 10 mg IVP Q6 PRN PRN Reason: Systolic Blood Pressure Last Admin: 02/02/17 19:28 Dose: 10 mg Ceftriaxone Sodium (Rocephin 1 Gram Ivpb) 100 mls @ 100 mls/hr IVPB DAILY [facility] PRN Reason: Protocol Last Admin: 02/02/17 12:01 Dose: 100 mls/hr Insulin Detemir (Levemir) 10 unit SC HS [facility] Last Admin: 02/02/17 21:48 Dose: Not Given Insulin Human Lispro (Humalog Med) 0 units SC ACHS [facility] PRN Reason: Protocol Last Admin: 02/03/17 07:57 Dose: Not Given Insulin Human Lispro (Humalog) 3 units SC AC [facility] Last Admin: 02/02/17 18:02 Dose: 3 units Lisinopril (Zestril) 5 mg PO DAILY [facility] Last Admin: 02/02/17 15:02 Dose: 5 mg Lorazepam (Ativan) 0.5 mg IVP Q6H PRN; Protocol PRN Reason: Anxiety Last Admin: 02/01/17 11:08 Dose: 0.5 mg Ondansetron HCl (Zofran Inj) 4 mg IVP Q4H PRN PRN Reason: Nausea/Vomiting Last Admin: 02/02/17 22:51 Dose: 4 mg Pantoprazole Sodium (Protonix Ec Tab) 40 mg PO 0630 [facility] Last Admin: 02/03/17 05:29 Dose: 40 mg Tramadol/Acetaminophen (Ultracet 37.5/325 Mg) 1 tab PO Q6H PRN PRN Reason: Pain, moderate (4-7) Last Admin: 02/02/17 18:12 Dose: 1 tab Trazodone HCl (Desyrel) 50 mg PO HS PRN PRN Reason: Insomnia Last Admin: 02/02/17 21:06 Dose: 50 mg - Labs Labs: 02/01/17 08:15 02/01/17 08:15 - Constitutional Appears: Non-toxic, No Acute Distress - Head Exam Head Exam: NORMAL INSPECTION - ENT Exam ENT Exam: Mucous Membranes Moist - Neck Exam Neck Exam: absent: Lymphadenopathy, Meningismus - Respiratory Exam Respiratory Exam: Decreased Breath Sounds - Cardiovascular Exam Cardiovascular Exam: +S1, +S2 - GI/Abdominal Exam GI & Abdominal Exam: Soft. absent: Tenderness - Extremities Exam Additional comments: both legs with dry dressings in place Assessment and Plan - Assessment and Plan (Free Text) Plan: Assessment Bilateral lower extremity ulcers with skin and skin structure infection R/O osteomyelitis; growing Serratia DM HTN peripheral arterial disease peripheral neuropathy history of substance abuse history of depression Plan continue Rocephin (day 5) Reviewed Podiatry evaluation - patient was unable to do MRI; awaiting WBC scan results (has been done) Will continue to follow clinically Discussed with Dr. Lugo previously
--- NOTE | 2017-02-03 17:08 | CP.PCM.PN ---
<Jennifer Carbajal - Last Filed: 02/03/17 19:39> Subjective - Date & Time of Evaluation Date of Evaluation: 02/03/17 Time of Evaluation: 07:15 - Subjective Subjective: Patient seen and examined at bedside. Overnight patient's BP was elevated, one dose of hydralazine was given and IVF was discontinued. Patient's diarrhea is improving. Denies having headache, weakness, fever, chills, shortness of breath , chest pain, nausea or vomiting. Objective - Vital Signs/Intake and Output Vital Signs (last 24 hours): Temp Pulse Resp BP Pulse Ox 99.6 F 64 20 167/87 H 98 02/03/17 16:08 02/03/17 16:08 02/03/17 16:08 02/03/17 16:08 02/03/17 16:08 Intake and Output: 02/03/17 02/03/17 06:59 18:59 Intake Total 320 Output Total 350 Balance -30 - Medications Medications: Current Medications Collagenase (Santyl) 3 gm TOP DAILY [facility] Stop: 02/05/17 23:00 Last Admin: 02/03/17 09:00 Dose: 1 applic Heparin Sodium (Porcine) (Heparin) 5,000 units SC Q8 [facility] PRN Reason: Protocol Last Admin: 02/03/17 14:54 Dose: 5,000 units Hydralazine HCl (Apresoline) 10 mg IVP Q6 PRN PRN Reason: Systolic Blood Pressure Last Admin: 02/02/17 19:28 Dose: 10 mg Ceftriaxone Sodium (Rocephin 1 Gram Ivpb) 100 mls @ 100 mls/hr IVPB DAILY [facility] PRN Reason: Protocol Last Admin: 02/03/17 09:31 Dose: 100 mls/hr Insulin Detemir (Levemir) 10 unit SC HS [facility] Last Admin: 02/02/17 21:48 Dose: Not Given Insulin Human Lispro (Humalog Med) 0 units SC ACHS [facility] PRN Reason: Protocol Last Admin: 02/03/17 16:02 Dose: Not Given Insulin Human Lispro (Humalog) 3 units SC AC [facility] Last Admin: 02/03/17 12:17 Dose: 3 units Lisinopril (Zestril) 5 mg PO DAILY [facility] Last Admin: 02/03/17 09:29 Dose: 5 mg Loperamide HCl (Imodium) 2 mg PO QID PRN PRN Reason: Diarrhea Lorazepam (Ativan) 0.5 mg IVP Q6H PRN; Protocol PRN Reason: Anxiety Last Admin: 02/01/17 11:08 Dose: 0.5 mg Ondansetron HCl (Zofran Inj) 4 mg IVP Q4H PRN PRN Reason: Nausea/Vomiting Last Admin: 02/02/17 22:51 Dose: 4 mg Pantoprazole Sodium (Protonix Ec Tab) 40 mg PO 0630 [facility] Last Admin: 02/03/17 05:29 Dose: 40 mg Tramadol/Acetaminophen (Ultracet 37.5/325 Mg) 1 tab PO Q6H PRN PRN Reason: Pain, moderate (4-7) Last Admin: 02/03/17 08:04 Dose: 1 tab Trazodone HCl (Desyrel) 50 mg PO HS PRN PRN Reason: Insomnia Last Admin: 02/02/17 21:06 Dose: 50 mg - Labs Labs: 02/03/17 09:00 02/03/17 09:00 - Constitutional Appears: Well, No Acute Distress - Head Exam Head Exam: ATRAUMATIC, NORMOCEPHALIC - Eye Exam Eye Exam: Normal appearance - ENT Exam ENT Exam: Mucous Membranes Moist - Neck Exam Neck Exam: Normal Inspection - Respiratory Exam Respiratory Exam: Clear to Ausculation Bilateral, NORMAL BREATHING PATTERN. absent: Wheezes, Respiratory Distress - Cardiovascular Exam Cardiovascular Exam: REGULAR RHYTHM, RRR, +S1, +S2. absent: Murmur - GI/Abdominal Exam GI & Abdominal Exam: Soft, Normal Bowel Sounds. absent: Tenderness - Extremities Exam Extremities Exam: absent: Normal Inspection Additional comments: Bilateral lower extremity wound dressing dry, clean, and intact - Neurological Exam Neurological Exam: Alert, Awake, Oriented x3 - Psychiatric Exam Psychiatric exam: Normal Affect, Normal Mood - Skin Skin Exam: Dry, Warm Assessment and Plan - Assessment and Plan (Free Text) Assessment: 61 year old male with past medical history of hypertension, diabetes, polysubstance abuse of cocaine and heroin, and depression presents with b/l worsening leg ulcerations. Awaiting ceretec scan result, normal arterial dopplers. Pt has also been found to have Hep C, pt will follow up with [facility] hepatic clinic. Wound culture positive for Serratia marcesens. 1. B/l lower ext ulcers - Ceretec scan pending - arterial doppler negative - ID following, on Rocephin - Wound culture shows Serratia marcesens - Podiatry following 2. HTN - Lisinopril 5 mg added - Discontinue IVF - Hydralazine 10mg prn - Will continue to monitor 3. Hx of DM - Home insulin regimen continued - Glucose levels stable 4. Diarrhea - Stool culture was negative for C. diff - Start imodium prn - Stool sent for ova and parasites - Urine culture no growth 5. Substance abuse - Counseled on benefits of cessation 6. Hep C - F/u outpt with [facility] liver clinic - LFTs stable from previous lab work 7. Hypokalemia - K today 3.1 - K channinger given - Follow up AM lab 8. PPX - Protonix - Heparin - Zofran <Trixie Lugo - Last Filed: 02/03/17 22:23> Objective - Vital Signs/Intake and Output Vital Signs (last 24 hours): Temp Pulse Resp BP Pulse Ox 99.6 F 64 20 167/87 H 98 02/03/17 16:08 02/03/17 16:08 02/03/17 16:08 02/03/17 16:08 02/03/17 16:08 Intake and Output: 02/03/17 02/04/17 18:59 06:59 Intake Total 360 Output Total 200 Balance 160 - Medications Medications: Current Medications Collagenase (Santyl) 3 gm TOP DAILY [facility] Stop: 02/05/17 23:00 Last Admin: 02/03/17 09:00 Dose: 1 applic Heparin Sodium (Porcine) (Heparin) 5,000 units SC Q8 [facility] PRN Reason: Protocol Last Admin: 02/03/17 21:24 Dose: 5,000 units Hydralazine HCl (Apresoline) 10 mg IVP Q6 PRN PRN Reason: Systolic Blood Pressure Last Admin: 02/02/17 19:28 Dose: 10 mg Ceftriaxone Sodium (Rocephin 1 Gram Ivpb) 100 mls @ 100 mls/hr IVPB DAILY [facility] PRN Reason: Protocol Last Admin: 02/03/17 09:31 Dose: 100 mls/hr Insulin Detemir (Levemir) 10 unit SC [facility] Last Admin: 02/03/17 21:24 Dose: Not Given Insulin Human Lispro (Humalog Med) 0 units SC ACHS [facility] PRN Reason: Protocol Last Admin: 02/03/17 21:25 Dose: Not Given Insulin Human Lispro (Humalog) 3 units SC AC [facility] Last Admin: 02/03/17 17:30 Dose: 3 units Lisinopril (Zestril) 5 mg PO DAILY [facility] Last Admin: 02/03/17 09:29 Dose: 5 mg Loperamide HCl (Imodium) 2 mg PO QID PRN PRN Reason: Diarrhea Lorazepam (Ativan) 0.5 mg IVP Q6H PRN; Protocol PRN Reason: Anxiety Last Admin: 02/01/17 11:08 Dose: 0.5 mg Ondansetron HCl (Zofran Inj) 4 mg IVP Q4H PRN PRN Reason: Nausea/Vomiting Last Admin: 02/02/17 22:51 Dose: 4 mg Pantoprazole Sodium (Protonix Ec Tab) 40 mg PO 0630 [facility] Last Admin: 02/03/17 05:29 Dose: 40 mg Tramadol/Acetaminophen (Ultracet 37.5/325 Mg) 1 tab PO Q6H PRN PRN Reason: Pain, moderate (4-7) Last Admin: 02/03/17 17:34 Dose: 1 tab Trazodone HCl (Desyrel) 50 mg PO HS PRN PRN Reason: Insomnia Last Admin: 02/03/17 21:27 Dose: 50 mg - Labs Labs: 02/03/17 09:00 02/03/17 09:00 Attending/Attestation - Attestation I have personally seen and examined this patient.: Yes I have fully participated in the care of the patient.: Yes I have reviewed all pertinent clinical information, including history, physical exam and plan: Yes Notes (Text): 02/03/17 22:20 61 year old male with past medical history of diabetes, substance abuse and chronic leg ulcerations presented with complaint of worsening leg ulcerations. Venous dopplers, arterial dopplers and xrays were negative. Scan was done but read is still pending to rule out osteomyelitis. Continue with wound care as per podiatry. Continue with iv antibiotics as per ID. Wound culture is growing Serratia Marcescens. He was counselled on risks of continued substance abuse. Continue with supportive care for withdrawal symptoms. He is on zofran prn for nausea/ vomiting and ativan prn for agitation. He is on imodium prn for diarrhea. Jovanny replete and repeat potassium. He is on levemir and insulin ss for diabetes and lisinopril for hypertension. Recommended to follow up at [facility] hepatitis clinic for hepatitis C. Trixie Lugo MD Hospitalist.
[2017-02-03] MEDS: Insulin Detemir 100 units/ml Vial (Levemir) SC SCH (21:24)
[2017-02-04] MEDS: TraMADol/Apap 37.5/325 mg Tab PO PRN ×2 (04:07→19:39)
[2017-02-04] MEDS: Pantoprazole 40 mg EC Tab PO SCH (06:00)
[2017-02-04] MEDS: Insulin Lispro (humaLOG) MEDIUM Coverage SC SCH ×4 (07:46→21:24)
[2017-02-04] MEDS: Insulin Lispro 1 UNITS/0.01 ML SC SCH ×3 (07:55→16:38)
[2017-02-04 08:52] LABS: ADD MANUAL DIFF? NO
[2017-02-04 09:02] LABS: BASO # 0.01 K/mm3 (0.0-2.0); BASO % 0.1 % (0.0-3.0); GRAN # 5.26 (1.4-6.5); GRAN % 66.9 % (50.0-68.0); HEMATOCRIT 41.8 % (42.0-52.0); LYMPH # 2.2 (1.2-3.4); LYMPH % 28.2 % (22.0-35.0); MEAN CELL VOLUME 84.8 fL (80.0-105.0); MEAN CORPUSCULAR HEMOGLOBIN 30.8 pg (25.0-35.0); MEAN CORPUSCULAR HGB CONC 36.4 g/dl (31.0-37.0); MEAN PLATELET VOLUME 10.2 fl (7.0-11.0); MONO # 0.4 (0.1-0.6); MONO % 4.8 % (1.0-6.0); PLATELET COUNT 267 10^3/uL (120.0-450.0); RED CELL DISTRIBUTION WIDTH 12.1 % (11.5-14.5); WHITE BLOOD COUNT 7.9 10^3/ul (4.5-11.0)
[2017-02-04] MEDS: cefTRIAXone 1 gm 100 ML IVPB SCH (09:15)
[2017-02-04 09:16] LABS: ALB/GLOB RATIO 0.9 (1.1-1.8); ALKALINE PHOSPHATASE 61 U/L (38-133); ALT/SGPT 25 U/L (7-56); AST/SGOT 32 U/L (15-59); BILIRUBIN,TOTAL 0.9 mg/dL (0.2-1.3); BLOOD UREA NITROGEN 16 mg/dL (7-21); CARBON DIOXIDE 23 mmol/L (21-33); CHLORIDE 102 mmol/L (98-107); GFR AFRICAN-AMERICAN > 60; GLUCOSE,RANDOM 150 mg/dL (70-110); POTASSIUM 3.5 mmol/L (3.6-5.0); SODIUM 136 mmol/L (132-148)
[2017-02-04] MEDS: Collagenase 250 Units/gm Ointment(30 gm) TOP SCH (09:16)
[2017-02-04] MEDS ORDERED: Potassium Chloride 40 mEq/30 ml LIQ UD PO ONE (10:45)
--- NOTE | 2017-02-04 11:10 | PN ---
DATE: 02/04/2017 The patient is in bed in no acute distress, nontoxic. PHYSICAL EXAMINATION: VITAL SIGNS: Temperature is 98, blood pressure is 112/70, respiratory rate of 16. HEENT: Unremarkable. NECK: Supple. LUNGS: Have decreased breath sounds. HEART: Normal S1, S2. ABDOMEN: Soft, nontender. LABORATORY DATA: Reveals a white count of 7.9, hemoglobin of 15 and a sed rate of 30. Chemistries r eveal the BUN of 16, creatinine of 0.8. Urinalysis is noted. Hepatitis C is reactive. HIV is negat bandar. ASSESSMENT AND PLAN: This is a 61-year-old with bilateral lower extremity ulcers and skin soft tissu e infection, rule out underlying osteomyelitis, growing Serratia, diabetes and hypertension on day #6 of ceftriaxone and peripheral arterial disease, peripheral neuropathy, substance abuse, history of d epression, waiting for WBC scan which was done. Results are pending. Review of the orders confirms the patient to be on ceftriaxone. Solomon Antunez MD cc: 350 TT: 02/04/2017 11:09:33 Confirmation # [id number] Dictation # [id number]
--- NOTE | 2017-02-04 15:05 | CP.PCM.PN ---
<Leo Witt - Last Filed: 02/04/17 15:01> Subjective - Date & Time of Evaluation Date of Evaluation: 02/04/17 Time of Evaluation: 15:01 - Subjective Subjective: Pt seen and examined at bedside. Pt doing well this morning with no complaints. Pt states diarrhea is improving and no episodes of vomiting. No acute events overnight. Tolerating diet well. Denies CP, N/V/D, SOB. Objective - Vital Signs/Intake and Output Vital Signs (last 24 hours): Temp Pulse Resp BP Pulse Ox 98.5 F 64 20 133/81 98 02/04/17 06:00 02/04/17 09:15 02/04/17 06:00 02/04/17 09:15 02/04/17 06:00 Intake and Output: 02/04/17 02/04/17 06:59 18:59 Intake Total 360 Output Total 500 Balance -140 - Medications Medications: Current Medications Collagenase (Santyl) 3 gm TOP DAILY [facility] Stop: 02/05/17 23:00 Last Admin: 02/04/17 09:16 Dose: 1 applic Heparin Sodium (Porcine) (Heparin) 5,000 units SC Q8 [facility] PRN Reason: Protocol Last Admin: 02/04/17 13:56 Dose: 5,000 units Hydralazine HCl (Apresoline) 10 mg IVP Q6 PRN PRN Reason: Systolic Blood Pressure Last Admin: 02/02/17 19:28 Dose: 10 mg Ceftriaxone Sodium (Rocephin 1 Gram Ivpb) 100 mls @ 100 mls/hr IVPB DAILY [facility] PRN Reason: Protocol Last Admin: 02/04/17 09:15 Dose: 100 mls/hr Insulin Detemir (Levemir) 10 unit SC HS [facility] Last Admin: 02/03/17 21:24 Dose: Not Given Insulin Human Lispro (Humalog Med) 0 units SC ACHS [facility] PRN Reason: Protocol Last Admin: 02/04/17 11:44 Dose: Not Given Insulin Human Lispro (Humalog) 3 units SC AC [facility] Last Admin: 02/04/17 11:46 Dose: 3 units Lisinopril (Zestril) 5 mg PO DAILY [facility] Last Admin: 02/04/17 09:15 Dose: 5 mg Loperamide HCl (Imodium) 2 mg PO QID PRN PRN Reason: Diarrhea Last Admin: 02/04/17 09:15 Dose: 2 mg Lorazepam (Ativan) 0.5 mg IVP Q6H PRN; Protocol PRN Reason: Anxiety Last Admin: 02/01/17 11:08 Dose: 0.5 mg Ondansetron HCl (Zofran Inj) 4 mg IVP Q4H PRN PRN Reason: Nausea/Vomiting Last Admin: 02/02/17 22:51 Dose: 4 mg Pantoprazole Sodium (Protonix Ec Tab) 40 mg PO 0630 [facility] Last Admin: 02/04/17 06:00 Dose: 40 mg Tramadol/Acetaminophen (Ultracet 37.5/325 Mg) 1 tab PO Q6H PRN PRN Reason: Pain, moderate (4-7) Last Admin: 02/04/17 04:07 Dose: 1 tab Trazodone HCl (Desyrel) 50 mg PO HS PRN PRN Reason: Insomnia Last Admin: 02/03/17 21:27 Dose: 50 mg - Labs Labs: 02/04/17 08:30 02/04/17 08:30 - Constitutional Appears: Well, No Acute Distress - Head Exam Head Exam: ATRAUMATIC, NORMAL INSPECTION, NORMOCEPHALIC - ENT Exam ENT Exam: Mucous Membranes Moist, Normal Exam - Respiratory Exam Respiratory Exam: Clear to Ausculation Bilateral, NORMAL BREATHING PATTERN. absent: Rales, Rhonchi, Wheezes - Cardiovascular Exam Cardiovascular Exam: RRR, +S1, +S2 - GI/Abdominal Exam GI & Abdominal Exam: Soft, Normal Bowel Sounds. absent: Tenderness - Extremities Exam Additional comments: B/L lower ext bandaged. Clean, dry, and intact - Neurological Exam Neurological Exam: Alert, Awake, Oriented x3 - Psychiatric Exam Psychiatric exam: Normal Affect, Normal Mood - Skin Skin Exam: Normal Color, Warm Assessment and Plan - Assessment and Plan (Free Text) Plan: 61 year old male with past medical history of hypertension, diabetes, polysubstance abuse of cocaine and heroin, and depression presents with worsening b/l leg ulcerations. Pt is being followed by podiatry who have ordered a ceretec scan, results pending at this time. Wound cultures demonstrate serratia marcesens. 1. B/l lower ext ulcers - Ceretec scan results pending - ID following, on Rocephin - Wound culture shows Serratia marcesens - Podiatry following 2. HTN - Continue Lisinopril 5 mg - Hydralazine 10mg prn 3. Hx of DM - Home insulin regimen continued - Glucose levels stable 4. Diarrhea - Improving - Stool culture was negative for C. diff - Start imodium prn - Stool Ova and parasites negative 5. Substance abuse - Counseled on benefits of cessation 6. Hep C - F/u outpt with [facility] liver clinic - LFTs stable 7. Hypokalemia - 3.5 today after being low yesterday - Monitor in AM 8. PPX - Protonix - Heparin - Zofran Seen, reviewed, and discussed with attending. Eduar, PGY-1 <Trixie Lugo - Last Filed: 02/04/17 15:28> Objective - Vital Signs/Intake and Output Vital Signs (last 24 hours): Temp Pulse Resp BP Pulse Ox 98.5 F 64 20 133/81 98 02/04/17 06:00 02/04/17 09:15 02/04/17 06:00 02/04/17 09:15 02/04/17 06:00 Intake and Output: 02/04/17 02/04/17 06:59 18:59 Intake Total 360 Output Total 500 Balance -140 - Medications Medications: Current Medications Collagenase (Santyl) 3 gm TOP DAILY [facility] Stop: 02/05/17 23:00 Last Admin: 02/04/17 09:16 Dose: 1 applic Heparin Sodium (Porcine) (Heparin) 5,000 units SC Q8 [facility] PRN Reason: Protocol Last Admin: 02/04/17 13:56 Dose: 5,000 units Hydralazine HCl (Apresoline) 10 mg IVP Q6 PRN PRN Reason: Systolic Blood Pressure Last Admin: 02/02/17 19:28 Dose: 10 mg Ceftriaxone Sodium (Rocephin 1 Gram Ivpb) 100 mls @ 100 mls/hr IVPB DAILY [facility] PRN Reason: Protocol Last Admin: 02/04/17 09:15 Dose: 100 mls/hr Insulin Detemir (Levemir) 10 unit SC HS [facility] Last Admin: 02/03/17 21:24 Dose: Not Given Insulin Human Lispro (Humalog Med) 0 units SC ACHS [facility] PRN Reason: Protocol Last Admin: 02/04/17 11:44 Dose: Not Given Insulin Human Lispro (Humalog) 3 units SC AC [facility] Last Admin: 02/04/17 11:46 Dose: 3 units Lisinopril (Zestril) 5 mg PO DAILY [facility] Last Admin: 02/04/17 09:15 Dose: 5 mg Loperamide HCl (Imodium) 2 mg PO QID PRN PRN Reason: Diarrhea Last Admin: 02/04/17 09:15 Dose: 2 mg Lorazepam (Ativan) 0.5 mg IVP Q6H PRN; Protocol PRN Reason: Anxiety Last Admin: 02/01/17 11:08 Dose: 0.5 mg Ondansetron HCl (Zofran Inj) 4 mg IVP Q4H PRN PRN Reason: Nausea/Vomiting Last Admin: 02/02/17 22:51 Dose: 4 mg Pantoprazole Sodium (Protonix Ec Tab) 40 mg PO 0630 [facility] Last Admin: 02/04/17 06:00 Dose: 40 mg Tramadol/Acetaminophen (Ultracet 37.5/325 Mg) 1 tab PO Q6H PRN PRN Reason: Pain, moderate (4-7) Last Admin: 02/04/17 04:07 Dose: 1 tab Trazodone HCl (Desyrel) 50 mg PO HS PRN PRN Reason: Insomnia Last Admin: 02/03/17 21:27 Dose: 50 mg - Labs Labs: 02/04/17 08:30 02/04/17 08:30 Attending/Attestation - Attestation I have personally seen and examined this patient.: Yes I have fully participated in the care of the patient.: Yes I have reviewed all pertinent clinical information, including history, physical exam and plan: Yes Notes (Text): 02/04/17 15:26 61 year old male with past medical history of diabetes, substance abuse and chronic leg ulcerations presented with complaint of worsening leg ulcerations. Workup including venous dopplers, arterial dopplers and xrays were negative. NM scan was done but read is still pending to rule out osteomyelitis. Continue with wound care as per podiatry. Continue with iv antibiotics as per ID. Wound culture is growing Serratia Marcescens. He was counselled on risks of continued substance abuse. Continue with supportive care for withdrawal symptoms. He is on zofran prn for nausea/ vomiting and ativan prn for agitation. He is on imodium prn for diarrhea. Potassium is 3.5 which we will replete and repeat. He is on levemir and insulin ss for diabetes. He is on lisinopril for hypertension. Recommended to follow up at [facility] hepatitis clinic for hepatitis C. Will discuss with vocational case manager / oncology social worker tomorrow for d/c planning. Trixie Lugo MD Hospitalist.
[2017-02-04] MEDS: Insulin Detemir 100 units/ml Vial (Levemir) SC SCH (21:23)
[2017-02-05] MEDS: TraMADol/Apap 37.5/325 mg Tab PO PRN ×3 (01:27→18:14)
[2017-02-05] MEDS: Pantoprazole 40 mg EC Tab PO SCH (05:29)
[2017-02-05 07:42] LABS: ADD MANUAL DIFF? NO
[2017-02-05 07:45] LABS: BASO # 0.02 K/mm3 (0.0-2.0); BASO % 0.2 % (0.0-3.0); EOS % 0.2 % (1.5-5.0); GRAN # 6.07 (1.4-6.5); GRAN % 65.7 % (50.0-68.0); HEMATOCRIT 40.3 % (42.0-52.0); LYMPH # 2.7 (1.2-3.4); MEAN CELL VOLUME 85.4 fL (80.0-105.0); MEAN CORPUSCULAR HEMOGLOBIN 31.1 pg (25.0-35.0); MEAN CORPUSCULAR HGB CONC 36.5 g/dl (31.0-37.0); MEAN PLATELET VOLUME 10.1 fl (7.0-11.0); MONO # 0.5 (0.1-0.6); MONO % 4.9 % (1.0-6.0); PLATELET COUNT 260 10^3/uL (120.0-450.0); RED CELL DISTRIBUTION WIDTH 12.2 % (11.5-14.5); WHITE BLOOD COUNT 9.2 10^3/ul (4.5-11.0)
[2017-02-05] MEDS: Insulin Lispro (humaLOG) MEDIUM Coverage SC SCH ×4 (08:06→21:57)
[2017-02-05 08:32] LABS: ALB/GLOB RATIO 0.8 (1.1-1.8); ALKALINE PHOSPHATASE 60 U/L (38-133); ALT/SGPT 22 U/L (7-56); AST/SGOT 35 U/L (15-59); BILIRUBIN,TOTAL 0.9 mg/dL (0.2-1.3); BLOOD UREA NITROGEN 15 mg/dL (7-21); CALCIUM 8.7 mg/dL (8.4-10.5); CARBON DIOXIDE 23 mmol/L (21-33); CHLORIDE 104 mmol/L (98-107); GFR AFRICAN-AMERICAN > 60; GLUCOSE,RANDOM 164 mg/dL (70-110); POTASSIUM 3.7 mmol/L (3.6-5.0); SODIUM 139 mmol/L (132-148); TOTAL PROTEIN 7.9 g/dL (5.8-8.3)
[2017-02-05] MEDS: cefTRIAXone 1 gm 100 ML IVPB SCH (09:32)
[2017-02-05] MEDS: Insulin Lispro 1 UNITS/0.01 ML SC SCH ×3 (09:32→17:15)
[2017-02-05] MEDS: Collagenase 250 Units/gm Ointment(30 gm) TOP SCH (09:33)
--- NOTE | 2017-02-05 11:21 | CP.PCM.PN ---
<Leo Witt - Last Filed: 02/05/17 11:18> Subjective - Date & Time of Evaluation Date of Evaluation: 02/05/17 Time of Evaluation: 11:18 - Subjective Subjective: Pt seen and examined at bedside. Pt states he is still having diarrhea, which he had 2 times overnight. Stools are loose and watery. Pt states otherwise, he has no complaints. Denies CP, SOB, N/V/D, fevers, chills. Objective - Vital Signs/Intake and Output Vital Signs (last 24 hours): Temp Pulse Resp BP Pulse Ox 98.1 F 60 20 130/80 99 02/05/17 06:00 02/05/17 09:31 02/05/17 06:00 02/05/17 09:31 02/05/17 06:00 Intake and Output: 02/05/17 02/05/17 06:59 18:59 Intake Total 360 240 Output Total 400 Balance -40 240 - Medications Medications: Current Medications Collagenase (Santyl) 3 gm TOP DAILY COUNTS INCLUDE 234 BEDS AT THE [facility] Stop: 02/05/17 23:00 Last Admin: 02/05/17 09:33 Dose: 1 applic Heparin Sodium (Porcine) (Heparin) 5,000 units SC Q8 ELIJAH PRN Reason: Protocol Last Admin: 02/05/17 05:28 Dose: 5,000 units Hydralazine HCl (Apresoline) 10 mg IVP Q6 PRN PRN Reason: Systolic Blood Pressure Last Admin: 02/02/17 19:28 Dose: 10 mg Ceftriaxone Sodium (Rocephin 1 Gram Ivpb) 100 mls @ 100 mls/hr IVPB DAILY ELIJAH PRN Reason: Protocol Last Admin: 02/05/17 09:32 Dose: 100 mls/hr Insulin Detemir (Levemir) 10 unit SC HS COUNTS INCLUDE 234 BEDS AT THE [facility] Last Admin: 02/04/17 21:23 Dose: 10 unit Insulin Human Lispro (Humalog Med) 0 units SC ACHS ELIJAH PRN Reason: Protocol Last Admin: 02/05/17 08:06 Dose: Not Given Insulin Human Lispro (Humalog) 3 units SC AC COUNTS INCLUDE 234 BEDS AT THE [facility] Last Admin: 02/05/17 09:32 Dose: 3 units Lisinopril (Zestril) 5 mg PO DAILY COUNTS INCLUDE 234 BEDS AT THE [facility] Last Admin: 02/05/17 09:31 Dose: 5 mg Loperamide HCl (Imodium) 2 mg PO QID PRN PRN Reason: Diarrhea Last Admin: 02/05/17 09:31 Dose: 2 mg Lorazepam (Ativan) 0.5 mg IVP Q6H PRN; Protocol PRN Reason: Anxiety Last Admin: 02/01/17 11:08 Dose: 0.5 mg Ondansetron HCl (Zofran Inj) 4 mg IVP Q4H PRN PRN Reason: Nausea/Vomiting Last Admin: 02/02/17 22:51 Dose: 4 mg Pantoprazole Sodium (Protonix Ec Tab) 40 mg PO 0630 ELIJAH Last Admin: 02/05/17 05:29 Dose: 40 mg Tramadol/Acetaminophen (Ultracet 37.5/325 Mg) 1 tab PO Q6H PRN PRN Reason: Pain, moderate (4-7) Last Admin: 02/05/17 09:31 Dose: 1 tab Trazodone HCl (Desyrel) 50 mg PO HS PRN PRN Reason: Insomnia Last Admin: 02/04/17 21:20 Dose: 50 mg - Labs Labs: 02/05/17 07:30 02/05/17 07:30 - Constitutional Appears: Well, No Acute Distress - Head Exam Head Exam: ATRAUMATIC, NORMAL INSPECTION, NORMOCEPHALIC - ENT Exam ENT Exam: Mucous Membranes Moist, Normal Exam - Respiratory Exam Respiratory Exam: Clear to Ausculation Bilateral, NORMAL BREATHING PATTERN. absent: Rhonchi, Wheezes - Cardiovascular Exam Cardiovascular Exam: RRR, +S1, +S2 - GI/Abdominal Exam GI & Abdominal Exam: Soft, Normal Bowel Sounds. absent: Tenderness - Extremities Exam Extremities Exam: absent: Pedal Edema Additional comments: B/l lower extremities bandaged, clean, dry, and intact. - Neurological Exam Neurological Exam: Alert, Awake, Oriented x3 - Psychiatric Exam Psychiatric exam: Normal Affect, Normal Mood - Skin Skin Exam: Intact, Normal Color, Warm Assessment and Plan - Assessment and Plan (Free Text) Plan: 61 y/o M with past medical history of hypertension, diabetes, polysubstance abuse of cocaine and heroin, and depression presents with worsening b/l leg ulcerations. Awaiting ceretec scan results, which will dictate course of treatment. Pt will either receive PICC line for osteomyelitis or be switched to PO abx. Wound cultures demonstrate serratia marcesens. 1. B/l lower ext ulcers - Ceretec scan results pending - ID following, on Rocephin - Wound culture shows Serratia marcflorns - Podiatry following 2. HTN - BP stable - Continue Lisinopril 5 mg - Hydralazine 10mg prn 3. Hx of DM - Home insulin regimen continued - Glucose stable 4. Diarrhea - Stable - Stool culture was negative for C. diff - Imodium prn - Stool Ova and parasites negative 5. Substance abuse - Counseled on benefits of cessation 6. Hep C - F/u outpt with [facility] liver clinic - LFTs stable 7. PPX - Protonix - Heparin - Zofran Seen, reviewed, and discussed with attending. Eduar, PGY-1 <Elena TREJO,Janna - Last Filed: 02/05/17 16:40> Objective - Vital Signs/Intake and Output Vital Signs (last 24 hours): Temp Pulse Resp BP Pulse Ox 98.1 F 60 20 130/80 99 02/05/17 06:00 02/05/17 09:31 02/05/17 06:00 02/05/17 09:31 02/05/17 06:00 Intake and Output: 02/05/17 02/05/17 06:59 18:59 Intake Total 360 240 Output Total 400 Balance -40 240 - Medications Medications: Current Medications Collagenase (Santyl) 3 gm TOP DAILY COUNTS INCLUDE 234 BEDS AT THE [facility] Stop: 02/05/17 23:00 Last Admin: 02/05/17 09:33 Dose: 1 applic Heparin Sodium (Porcine) (Heparin) 5,000 units SC Q8 ELIJAH PRN Reason: Protocol Last Admin: 02/05/17 13:05 Dose: 5,000 units Hydralazine HCl (Apresoline) 10 mg IVP Q6 PRN PRN Reason: Systolic Blood Pressure Last Admin: 02/02/17 19:28 Dose: 10 mg Ceftriaxone Sodium (Rocephin 1 Gram Ivpb) 100 mls @ 100 mls/hr IVPB DAILY COUNTS INCLUDE 234 BEDS AT THE [facility] PRN Reason: Protocol Last Admin: 02/05/17 09:32 Dose: 100 mls/hr Insulin Detemir (Levemir) 10 unit SC HS COUNTS INCLUDE 234 BEDS AT THE [facility] Last Admin: 02/04/17 21:23 Dose: 10 unit Insulin Human Lispro (Humalog Med) 0 units SC ACHS COUNTS INCLUDE 234 BEDS AT THE [facility] PRN Reason: Protocol Last Admin: 02/05/17 12:35 Dose: 1 units Insulin Human Lispro (Humalog) 3 units SC AC COUNTS INCLUDE 234 BEDS AT THE [facility] Last Admin: 02/05/17 12:33 Dose: 3 units Lisinopril (Zestril) 5 mg PO DAILY COUNTS INCLUDE 234 BEDS AT THE [facility] Last Admin: 02/05/17 09:31 Dose: 5 mg Loperamide HCl (Imodium) 2 mg PO QID PRN PRN Reason: Diarrhea Last Admin: 02/05/17 09:31 Dose: 2 mg Lorazepam (Ativan) 0.5 mg IVP Q6H PRN; Protocol PRN Reason: Anxiety Last Admin: 02/01/17 11:08 Dose: 0.5 mg Ondansetron HCl (Zofran Inj) 4 mg IVP Q4H PRN PRN Reason: Nausea/Vomiting Last Admin: 02/02/17 22:51 Dose: 4 mg Pantoprazole Sodium (Protonix Ec Tab) 40 mg PO 0630 COUNTS INCLUDE 234 BEDS AT THE [facility] Last Admin: 02/05/17 05:29 Dose: 40 mg Tramadol/Acetaminophen (Ultracet 37.5/325 Mg) 1 tab PO Q6H PRN PRN Reason: Pain, moderate (4-7) Last Admin: 02/05/17 09:31 Dose: 1 tab Trazodone HCl (Desyrel) 50 mg PO HS PRN PRN Reason: Insomnia Last Admin: 02/04/17 21:20 Dose: 50 mg - Labs Labs: 02/05/17 07:30 02/05/17 07:30 Attending/Attestation - Attestation I have fully participated in the care of the patient.: Yes I have reviewed all pertinent clinical information, including history, physical exam and plan: Yes Notes (Text): 61 year old male with past medical history of diabetes, substance abuse and chronic leg ulcerations presented with complaint of worsening leg ulcerations.WBC scan showed soft tissue uptake in both legs with sinus tract , anteriorly at the level of mid shaft of right tibia, extending to the surface, discuss with ID, recommended 4 weeks of Rocephin, will get PICC line, also discuss with case management.
--- NOTE | 2017-02-05 11:46 | NM ---
PROCEDURE: Ceretec labeled white blood cell study HISTORY: ceretec label WBCs COMPARISON: 01/30/2017 TECHNIQUE: 18 mCi technetium 99 M Ceretec labeled white blood cells administered intravenously. Go FINDINGS: Uptake in soft tissues left lower extremity. Uptake related to orthopedic hardware right gotibia. This extends to the skin surface likely draining sinus tract. IMPRESSION: Abnormal findings in both lower extremities primarily within soft tissues. Likely sinus tract anteriorly at the level of the midshaft of the right tibia. Similar less pronounced changes left lower extremity.
--- NOTE | 2017-02-05 17:40 | CP.PCM.PN ---
Subjective - Date & Time of Evaluation Date of Evaluation: 02/05/17 Time of Evaluation: 09:30 - Subjective Subjective: No fevers overnight, less pain the legs, no diarrhea. Objective - Vital Signs/Intake and Output Vital Signs (last 24 hours): Temp Pulse Resp BP Pulse Ox 98.1 F 60 20 130/80 99 02/05/17 06:00 02/05/17 09:31 02/05/17 06:00 02/05/17 09:31 02/05/17 06:00 Intake and Output: 02/05/17 02/05/17 06:59 18:59 Intake Total 360 240 Output Total 400 Balance -40 240 - Medications Medications: Current Medications Collagenase (Santyl) 3 gm TOP DAILY [facility] Stop: 02/05/17 23:00 Last Admin: 02/05/17 09:33 Dose: 1 applic Heparin Sodium (Porcine) (Heparin) 5,000 units SC Q8 ELIJAH PRN Reason: Protocol Last Admin: 02/05/17 13:05 Dose: 5,000 units Hydralazine HCl (Apresoline) 10 mg IVP Q6 PRN PRN Reason: Systolic Blood Pressure Last Admin: 02/02/17 19:28 Dose: 10 mg Ceftriaxone Sodium (Rocephin 1 Gram Ivpb) 100 mls @ 100 mls/hr IVPB DAILY ELIJAH PRN Reason: Protocol Last Admin: 02/05/17 09:32 Dose: 100 mls/hr Insulin Detemir (Levemir) 10 unit SC HS [facility] Last Admin: 02/04/17 21:23 Dose: 10 unit Insulin Human Lispro (Humalog Med) 0 units SC ACHS [facility] PRN Reason: Protocol Last Admin: 02/05/17 17:09 Dose: Not Given Insulin Human Lispro (Humalog) 3 units SC AC [facility] Last Admin: 02/05/17 17:15 Dose: 3 units Lisinopril (Zestril) 5 mg PO DAILY [facility] Last Admin: 02/05/17 09:31 Dose: 5 mg Loperamide HCl (Imodium) 2 mg PO QID PRN PRN Reason: Diarrhea Last Admin: 02/05/17 09:31 Dose: 2 mg Lorazepam (Ativan) 0.5 mg IVP Q6H PRN; Protocol PRN Reason: Anxiety Last Admin: 02/01/17 11:08 Dose: 0.5 mg Ondansetron HCl (Zofran Inj) 4 mg IVP Q4H PRN PRN Reason: Nausea/Vomiting Last Admin: 02/02/17 22:51 Dose: 4 mg Pantoprazole Sodium (Protonix Ec Tab) 40 mg PO 0630 ELIJAH Last Admin: 02/05/17 05:29 Dose: 40 mg Tramadol/Acetaminophen (Ultracet 37.5/325 Mg) 1 tab PO Q6H PRN PRN Reason: Pain, moderate (4-7) Last Admin: 02/05/17 09:31 Dose: 1 tab Trazodone HCl (Desyrel) 50 mg PO HS PRN PRN Reason: Insomnia Last Admin: 02/04/17 21:20 Dose: 50 mg - Labs Labs: 02/05/17 07:30 02/05/17 07:30 - Constitutional Appears: Non-toxic, No Acute Distress - Head Exam Head Exam: NORMAL INSPECTION - Neck Exam Neck Exam: absent: Lymphadenopathy, Meningismus - Respiratory Exam Respiratory Exam: Decreased Breath Sounds - Cardiovascular Exam Cardiovascular Exam: +S1, +S2 - GI/Abdominal Exam GI & Abdominal Exam: Soft. absent: Tenderness - Extremities Exam Additional comments: both lower extremities with dry dressings in place Assessment and Plan - Assessment and Plan (Free Text) Plan: Assessment Bilateral lower extremity ulcers with skin and skin structure infection with evidence of sinus tracts from the mid tibia (that would be suspicious for osteomyelitis); growing Serratia DM HTN peripheral arterial disease peripheral neuropathy history of substance abuse history of depression Plan continue Rocephin (day 7); would recommend at least 4 weeks of antibiotics with weekly ESR, CRP, CBC, CMP while on antibiotics Discussed with Dr. Parker Will follow clinically while the patient is in the hospital
[2017-02-05] MEDS: Insulin Detemir 100 units/ml Vial (Levemir) SC SCH (21:57)
[2017-02-06] MEDS: Pantoprazole 40 mg EC Tab PO SCH (05:30)
[2017-02-06] MEDS: TraMADol/Apap 37.5/325 mg Tab PO PRN ×2 (05:30→12:21)
[2017-02-06 07:07] LABS: ALB/GLOB RATIO 0.8 (1.1-1.8); ALKALINE PHOSPHATASE 60 U/L (38-133); ALT/SGPT 31 U/L (7-56); AST/SGOT 38 U/L (15-59); BILIRUBIN,TOTAL 0.7 mg/dL (0.2-1.3); BLOOD UREA NITROGEN 14 mg/dL (7-21); CALCIUM 8.5 mg/dL (8.4-10.5); CARBON DIOXIDE 24 mmol/L (21-33); CHLORIDE 104 mmol/L (98-107); GFR AFRICAN-AMERICAN > 60; GLUCOSE,RANDOM 158 mg/dL (70-110); POTASSIUM 3.4 mmol/L (3.6-5.0); SODIUM 137 mmol/L (132-148); TOTAL PROTEIN 7.5 g/dL (5.8-8.3)
[2017-02-06 07:12] LABS: HEMATOCRIT 38.5 % (42.0-52.0); MEAN CELL VOLUME 85.6 fL (80.0-105.0); MEAN CORPUSCULAR HEMOGLOBIN 30.7 pg (25.0-35.0); MEAN CORPUSCULAR HGB CONC 35.8 g/dl (31.0-37.0); MEAN PLATELET VOLUME 10.6 fl (7.0-11.0); RED CELL DISTRIBUTION WIDTH 12.3 % (11.5-14.5); WHITE BLOOD COUNT 9.1 10^3/ul (4.5-11.0)
[2017-02-06] MEDS: Insulin Lispro (humaLOG) MEDIUM Coverage SC SCH ×3 (08:06→17:17)
[2017-02-06] MEDS: Insulin Lispro 1 UNITS/0.01 ML SC SCH ×3 (08:07→17:17)
[2017-02-06] MEDS ORDERED: Potassium Chloride 20 mEq ER Tab PO STA (09:10)
[2017-02-06] MEDS: cefTRIAXone 1 gm 100 ML IVPB SCH (09:27)
[2017-02-06] MEDS ORDERED: Lidocaine 2% Inj (20ml) ONE (11:01)
--- NOTE | 2017-02-06 14:47 | CP.PCM.HP ---
History of Present Illness - History of Present Illness History of Present Illness: 61 y/o M with a past medical history of DM, Hep. C and substance abuse, presented with worsening b/l leg ulcers. Pt stated ulcers have been getting progressively worse. Pt has a hx of IV drug abuse and uses illicit drugs frequently. Pt recently had signed out AMA from [facility] for lower extremity cellulitis. Pt underwent x-rays of ankle and tibia/fibia which were negative. Pt also underwent venous US of lower extremities which were negative for DVT. Arterial lower extremity US showed relatively normal MANOLO's. Wound culture was sensitive for Serratia marcascens which was sensitive to Rocephin. Pt then underwent a ceretec scan to evaluate for osteomyelitis as pt was not a good candidate for MRI due to previous ankle arthrodesis. Pt was found to have possible involvement of bone on ceretec scan. Pt had a PICC line placed and was then sent to rehab facility in [place] for a total of 4 weeks of IV Rocephin. Pt was also seen by psychiatry for opioid withdrawal symptoms, but pt was not a good candidate for Past Patient History - Past Medical History & Family History Past Medical History?: Yes - Past Social History Smoking Status: Heavy Smoker > 10 Cigarettes Daily Alcohol: Occasional Drugs: Cocaine, Opiates Home Situation {Lives}: Alone - CARDIAC Hx Hypertension: Yes - PULMONARY Hx Respiratory Disorders: No - NEUROLOGICAL Hx Neurological Disorder: No - HEENT Hx HEENT Problems: No - RENAL Hx Chronic Kidney Disease: No - ENDOCRINE/METABOLIC Hx Diabetes Mellitus Type 2: Yes - HEMATOLOGICAL/ONCOLOGICAL Hx Blood Disorders: No - INTEGUMENTARY Hx Dermatological Problems: No - MUSCULOSKELETAL/RHEUMATOLOGICAL Hx Musculoskeletal Disorders: No - GASTROINTESTINAL Hx Gastrointestinal Disorders: No - GENITOURINARY/GYNECOLOGICAL Hx Genitourinary Disorders: No - PSYCHIATRIC Hx Psychophysiologic Disorder: No Hx Substance Use: Yes - SURGICAL HISTORY Hx Surgeries: Yes - ANESTHESIA Hx Anesthesia: No Hx Anesthesia Reactions: No Meds Allergies/Adverse Reactions: Allergies Allergy/AdvReac Type Severity Reaction Status Date / Time No Known Allergies Allergy Verified 01/29/17 21:40 Results - Vital Signs Recent Vital Signs: Last Vital Signs Temp 99.3 F 02/06/17 06:00 Pulse 56 L 02/06/17 09:18 Resp 18 02/06/17 06:00 BP 140/74 02/06/17 09:18 Pulse Ox 98 02/06/17 06:00 - Labs Result Diagrams: 02/06/17 06:00 02/06/17 06:00 Labs: Laboratory Results - last 24 hr 02/02/17 02/02/17 02/02/17 07:26 11:15 16:11 WBC RBC Hgb Hct MCV MCH MCHC RDW Plt Count MPV Sodium Potassium Chloride Carbon Dioxide Anion Gap BUN Creatinine Est GFR ( Amer) Est GFR (Non-Af Amer) POC Glucose (mg/dL) 168 H 160 H 124 H Random Glucose Calcium Total Bilirubin AST ALT Alkaline Phosphatase Total Protein Albumin Globulin Albumin/Globulin Ratio 02/02/17 02/03/17 02/03/17 21:12 07:25 11:24 WBC RBC Hgb Hct MCV MCH MCHC RDW Plt Count MPV Sodium Potassium Chloride Carbon Dioxide Anion Gap BUN Creatinine Est GFR ( Amer) Est GFR (Non-Af Amer) POC Glucose (mg/dL) 113 H 149 H 139 H Random Glucose Calcium Total Bilirubin AST ALT Alkaline Phosphatase Total Protein Albumin Globulin Albumin/Globulin Ratio 02/03/17 02/04/17 02/04/17 15:54 07:22 11:42 WBC RBC Hgb Hct MCV MCH MCHC RDW Plt Count MPV Sodium Potassium Chloride Carbon Dioxide Anion Gap BUN Creatinine Est GFR ( Amer) Est GFR (Non-Af Amer) POC Glucose (mg/dL) 133 H 158 H 146 H Random Glucose Calcium Total Bilirubin AST ALT Alkaline Phosphatase Total Protein Albumin Globulin Albumin/Globulin Ratio 02/04/17 02/04/17 02/05/17 16:02 21:14 07:38 WBC RBC Hgb Hct MCV MCH MCHC RDW Plt Count MPV Sodium Potassium Chloride Carbon Dioxide Anion Gap BUN Creatinine Est GFR ( Amer) Est GFR (Non-Af Amer) POC Glucose (mg/dL) 126 H 153 H 147 H Random Glucose Calcium Total Bilirubin AST ALT Alkaline Phosphatase Total Protein Albumin Globulin Albumin/Globulin Ratio 02/05/17 02/05/17 02/05/17 11:49 16:16 21:03 WBC RBC Hgb Hct MCV MCH MCHC RDW Plt Count MPV Sodium Potassium Chloride Carbon Dioxide Anion Gap BUN Creatinine Est GFR ( Amer) Est GFR (Non-Af Amer) POC Glucose (mg/dL) 171 H 128 H 167 H Random Glucose Calcium Total Bilirubin AST ALT Alkaline Phosphatase Total Protein Albumin Globulin Albumin/Globulin Ratio 02/06/17 02/06/17 02/06/17 06:00 07:30 12:15 WBC 9.1 RBC 4.50 Hgb 13.8 L Hct 38.5 L MCV 85.6 MCH 30.7 MCHC 35.8 RDW 12.3 Plt Count 245 MPV 10.6 Sodium 137 Potassium 3.4 L Chloride 104 Carbon Dioxide 24 Anion Gap 12 BUN 14 Creatinine 0.8 Est GFR ( Amer) > 60 Est GFR (Non-Af Amer) > 60 POC Glucose (mg/dL) 169 H 187 H Random Glucose 158 H Calcium 8.5 Total Bilirubin 0.7 AST 38 ALT 31 Alkaline Phosphatase 60 Total Protein 7.5 Albumin 3.4 Globulin 4.1 Albumin/Globulin Ratio 0.8 L
--- NOTE | 2017-02-06 15:03 | CP.PCM.DIS ---
<Leo Witt - Last Filed: 02/06/17 14:59> Provider - Provider Date of Admission: 01/30/17 02:59 Attending physician: Trixie Lugo MD Primary care physician: Yeison Malone MD Consults: Podiatry - Dr. Samantha MCKEON - Dr. Snider Psych - Dr. Daugherty Time Spent in preparation of Discharge (in minutes): 45 Diagnosis - Discharge Diagnosis (1) Cellulitis of leg Status: Chronic Priority: Low (2) Infected traumatic leg ulcer Status: Chronic Priority: Medium (3) Drug abuse Status: Chronic Priority: Medium (4) Osteomyelitis Status: Acute Priority: Medium Hospital Course - Lab Results Lab Results: Micro Results 02/03/17 13:20 Stool Stool Culture - Final NO SALMONELLA, SHIGELLA OR CAMPYLOBACTER ISOLATED. 02/03/17 13:20 Stool Ova and Parasite Concentrate Exam - Final 02/03/17 13:20 Stool C. difficile Antigen & Toxin A,B (M - Final 02/01/17 12:20 Urine,Clean Catch Urine Culture - Final No Growth (<1,000 CFU/ML) 01/30/17 03:40 Urine Urine Culture - Final No Growth (<1,000 CFU/ML) Most Recent Lab Values WBC 9.1 10^3/ul (4.5-11.0) 02/06/17 06:00 RBC 4.50 10^6/uL (3.5-6.1) 02/06/17 06:00 Hgb 13.8 gm/dL (14.0-18.0) L 02/06/17 06:00 Hct 38.5 % (42.0-52.0) L 02/06/17 06:00 MCV 85.6 fL (80.0-105.0) 02/06/17 06:00 MCH 30.7 pg (25.0-35.0) 02/06/17 06:00 MCHC 35.8 g/dl (31.0-37.0) 02/06/17 06:00 RDW 12.3 % (11.5-14.5) 02/06/17 06:00 Plt Count 245 10^3/uL (120.0-450.0) 02/06/17 06:00 MPV 10.6 fl (7.0-11.0) 02/06/17 06:00 Gran % 65.7 % (50.0-68.0) 02/05/17 07:30 Lymph % (Auto) 29.0 % (22.0-35.0) 02/05/17 07:30 Isabela % (Auto) 4.9 % (1.0-6.0) 02/05/17 07:30 Eos % (Auto) 0.2 % (1.5-5.0) L 02/05/17 07:30 Baso % (Auto) 0.2 % (0.0-3.0) 02/05/17 07:30 Gran # 6.07 (1.4-6.5) 02/05/17 07:30 Lymph # 2.7 (1.2-3.4) 02/05/17 07:30 Isabela # 0.5 (0.1-0.6) 02/05/17 07:30 Eos # 0.0 (0.0-0.7) 02/05/17 07:30 Baso # 0.02 K/mm3 (0.0-2.0) 02/05/17 07:30 ESR 30 mm/hr (0.00-15.0) H 01/30/17 01:15 Sodium 137 mmol/L (132-148) 02/06/17 06:00 Potassium 3.4 mmol/L (3.6-5.0) L 02/06/17 06:00 Chloride 104 mmol/L (98-107) 02/06/17 06:00 Carbon Dioxide 24 mmol/L (21-33) 02/06/17 06:00 Anion Gap 12 (10-20) 02/06/17 06:00 BUN 14 mg/dL (7-21) 02/06/17 06:00 Creatinine 0.8 mg/dL (0.5-1.4) 02/06/17 06:00 Est GFR ( Amer) > 60 02/06/17 06:00 Est GFR (Non-Af Amer) > 60 02/06/17 06:00 POC Glucose (mg/dL) 187 mg/dL (65-110) H 02/06/17 12:15 Random Glucose 158 mg/dL (70-110) H 02/06/17 06:00 Hemoglobin A1c 15.2 % (4.2-6.5) H 01/30/17 06:00 Calcium 8.5 mg/dL (8.4-10.5) 02/06/17 06:00 Total Bilirubin 0.7 mg/dL (0.2-1.3) 02/06/17 06:00 AST 38 U/L (15-59) 02/06/17 06:00 ALT 31 U/L (7-56) 02/06/17 06:00 Alkaline Phosphatase 60 U/L (38-133) 02/06/17 06:00 C-React Prot High Sens > 15.00 mg/L (1.00-3.00) H 01/30/17 02:00 Total Protein 7.5 g/dL (5.8-8.3) 02/06/17 06:00 Albumin 3.4 g/dL (3.0-4.8) 02/06/17 06:00 Globulin 4.1 gm/dL 02/06/17 06:00 Albumin/Globulin Ratio 0.8 (1.1-1.8) L 02/06/17 06:00 Urine Color Yellow (YELLOW) 02/01/17 12:20 Urine Appearance Clear (CLEAR) 02/01/17 12:20 Urine pH 6.5 (4.7-8.0) 02/01/17 12:20 Ur Specific [place] 1.010 (1.005-1.035) 02/01/17 12:20 Urine Protein Negative mg/dL (<30 mg/dL) 02/01/17 12:20 Urine Glucose (UA) 100 mg/dL (NEGATIVE) H 02/01/17 12:20 Urine Ketones Negative mg/dL (NEGATIVE) 02/01/17 12:20 Urine Blood Small (NEGATIVE) H 02/01/17 12:20 Urine Nitrate Negative (NEGATIVE) 02/01/17 12:20 Urine Bilirubin Negative (NEGATIVE) 02/01/17 12:20 Urine Urobilinogen 0.2 E.U./dL (<1 E.U./dL) 02/01/17 12:20 Ur Leukocyte Esterase Negative Talia/uL (NEGATIVE) 02/01/17 12:20 Urine RBC 5 - 10 /hpf (0-2) 02/01/17 12:20 Urine WBC 0 - 2 /hpf (0-6) 02/01/17 12:20 Ur Epithelial Cells None /hpf (0-5) 02/01/17 12:20 Amorphous Sediment Few 02/01/17 12:20 Urine Bacteria Mod (NEG) 02/01/17 12:20 Urine Opiates Screen Positive (NEGATIVE) H 01/30/17 03:40 Urine Methadone Screen Negative (NEGATIVE) 01/30/17 03:40 Ur Barbiturates Screen Negative (NEGATIVE) 01/30/17 03:40 Ur Phencyclidine Scrn Negative (NEGATIVE) 01/30/17 03:40 Ur Amphetamines Screen Negative (NEGATIVE) 01/30/17 03:40 U Benzodiazepines Scrn Positive (NEGATIVE) H 01/30/17 03:40 U Oth Cocaine Metabols Negative (NEGATIVE) 01/30/17 03:40 U Cannabinoids Screen Negative (NEGATIVE) 01/30/17 03:40 Hepatitis A IgM Ab Negative (NEGATIVE) 01/30/17 02:00 Hep Bs Antigen Negative (NEGATIVE) 01/30/17 02:00 Hep B Core IgM Ab Negative (NEGATIVE) 01/30/17 02:00 Hepatitis C Antibody Reactive (NEGATIVE) H 01/30/17 02:00 HIV 1&2 Ag/Ab, 4th Gen Nonreactive (Nonreactive) 01/30/17 07:00 - Hospital Course Hospital Course: 61 y/o M with a past medical history of DM, Hep. C and substance abuse, presented with worsening b/l leg ulcers. Pt stated ulcers have been getting progressively worse. Pt has a hx of IV drug abuse and uses illicit drugs frequently. Pt recently had signed out AMA from [facility] for lower extremity cellulitis. Pt underwent x-rays of ankle and tibia/fibia which were negative. Pt also underwent venous US of lower extremities which were negative for DVT. Arterial lower extremity US showed relatively normal MANOLO's. Wound culture was sensitive for Serratia marcascens which was sensitive to Rocephin. Pt then underwent a ceretec scan to evaluate for osteomyelitis as pt was not a good candidate for MRI due to previous ankle arthrodesis. Pt was found to have possible involvement of bone on ceretec scan. Pt had a PICC line placed and was then sent to rehab facility in [place] for a total of 4 weeks of IV Rocephin. Pt was also seen by psychiatry for opioid withdrawal symptoms, but pt was not a good candidate for naltrexone therapy because pt must be off opioids for 4 weeks before starting therapy. Pt was also recommended inpt admission to psychiatry but unable to qualify at this time due to need for IV antibiotics. Discharge Exam - Head Exam Head Exam: NORMAL INSPECTION - ENT Exam ENT Exam: Mucous Membranes Moist, Normal Exam - Respiratory Exam Respiratory Exam: Rhonchi, UNREMARKABLE - Cardiovascular Exam Cardiovascular Exam: RRR, +S1, +S2 - GI/Abdominal Exam GI & Abdominal Exam: Normal Bowel Sounds, Soft. absent: Tenderness - Extremities Exam Additional comments: Lower extremities b/l bandaged. Clean, dry, and intact. - Neurological Exam Neurological exam: Alert, CN II-XII Intact, Oriented x3 - Psychiatric Exam Psychiatric exam: Normal Affect, Normal Mood - Skin Skin Exam: Normal Color, Warm Discharge Plan - Follow Up Plan Condition: STABLE Disposition: HOME/ ROUTINE Instructions: Cellulitis (DC), Osteomyelitis (DC), Chronic Wound Care (DC) Additional Instructions: [facility]. Referrals: Yeison Malone MD [Primary Care Provider] - <Elena TREJO,[facility] - Last Filed: 02/06/17 16:05> Provider - Provider Date of Admission: 01/30/17 02:59 Attending physician: Trixie Lugo MD Primary care physician: Yeison Malone MD Hospital Course - Lab Results Lab Results: Micro Results 02/03/17 13:20 Stool Stool Culture - Final NO SALMONELLA, SHIGELLA OR CAMPYLOBACTER ISOLATED. 02/03/17 13:20 Stool Ova and Parasite Concentrate Exam - Final 02/03/17 13:20 Stool C. difficile Antigen & Toxin A,B (M - Final 02/01/17 12:20 Urine,Clean Catch Urine Culture - Final No Growth (<1,000 CFU/ML) 01/30/17 03:40 Urine Urine Culture - Final No Growth (<1,000 CFU/ML) Most Recent Lab Values WBC 9.1 10^3/ul (4.5-11.0) 02/06/17 06:00 RBC 4.50 10^6/uL (3.5-6.1) 02/06/17 06:00 Hgb 13.8 gm/dL (14.0-18.0) L 02/06/17 06:00 Hct 38.5 % (42.0-52.0) L 02/06/17 06:00 MCV 85.6 fL (80.0-105.0) 02/06/17 06:00 MCH 30.7 pg (25.0-35.0) 02/06/17 06:00 MCHC 35.8 g/dl (31.0-37.0) 02/06/17 06:00 RDW 12.3 % (11.5-14.5) 02/06/17 06:00 Plt Count 245 10^3/uL (120.0-450.0) 02/06/17 06:00 MPV 10.6 fl (7.0-11.0) 02/06/17 06:00 Gran % 65.7 % (50.0-68.0) 02/05/17 07:30 Lymph % (Auto) 29.0 % (22.0-35.0) 02/05/17 07:30 Isabela % (Auto) 4.9 % (1.0-6.0) 02/05/17 07:30 Eos % (Auto) 0.2 % (1.5-5.0) L 02/05/17 07:30 Baso % (Auto) 0.2 % (0.0-3.0) 02/05/17 07:30 Gran # 6.07 (1.4-6.5) 02/05/17 07:30 Lymph # 2.7 (1.2-3.4) 02/05/17 07:30 Isabela # 0.5 (0.1-0.6) 02/05/17 07:30 Eos # 0.0 (0.0-0.7) 02/05/17 07:30 Baso # 0.02 K/mm3 (0.0-2.0) 02/05/17 07:30 ESR 30 mm/hr (0.00-15.0) H 01/30/17 01:15 Sodium 137 mmol/L (132-148) 02/06/17 06:00 Potassium 3.4 mmol/L (3.6-5.0) L 02/06/17 06:00 Chloride 104 mmol/L (98-107) 02/06/17 06:00 Carbon Dioxide 24 mmol/L (21-33) 02/06/17 06:00 Anion Gap 12 (10-20) 02/06/17 06:00 BUN 14 mg/dL (7-21) 02/06/17 06:00 Creatinine 0.8 mg/dL (0.5-1.4) 02/06/17 06:00 Est GFR ( Amer) > 60 02/06/17 06:00 Est GFR (Non-Af Amer) > 60 02/06/17 06:00 POC Glucose (mg/dL) 187 mg/dL (65-110) H 02/06/17 12:15 Random Glucose 158 mg/dL (70-110) H 02/06/17 06:00 Hemoglobin A1c 15.2 % (4.2-6.5) H 01/30/17 06:00 Calcium 8.5 mg/dL (8.4-10.5) 02/06/17 06:00 Total Bilirubin 0.7 mg/dL (0.2-1.3) 02/06/17 06:00 AST 38 U/L (15-59) 02/06/17 06:00 ALT 31 U/L (7-56) 02/06/17 06:00 Alkaline Phosphatase 60 U/L (38-133) 02/06/17 06:00 C-React Prot High Sens > 15.00 mg/L (1.00-3.00) H 01/30/17 02:00 Total Protein 7.5 g/dL (5.8-8.3) 02/06/17 06:00 Albumin 3.4 g/dL (3.0-4.8) 02/06/17 06:00 Globulin 4.1 gm/dL 02/06/17 06:00 Albumin/Globulin Ratio 0.8 (1.1-1.8) L 02/06/17 06:00 Urine Color Yellow (YELLOW) 02/01/17 12:20 Urine Appearance Clear (CLEAR) 02/01/17 12:20 Urine pH 6.5 (4.7-8.0) 02/01/17 12:20 Ur Specific [place] 1.010 (1.005-1.035) 02/01/17 12:20 Urine Protein Negative mg/dL (<30 mg/dL) 02/01/17 12:20 Urine Glucose (UA) 100 mg/dL (NEGATIVE) H 02/01/17 12:20 Urine Ketones Negative mg/dL (NEGATIVE) 02/01/17 12:20 Urine Blood Small (NEGATIVE) H 02/01/17 12:20 Urine Nitrate Negative (NEGATIVE) 02/01/17 12:20 Urine Bilirubin Negative (NEGATIVE) 02/01/17 12:20 Urine Urobilinogen 0.2 E.U./dL (<1 E.U./dL) 02/01/17 12:20 Ur Leukocyte Esterase Negative Talia/uL (NEGATIVE) 02/01/17 12:20 Urine RBC 5 - 10 /hpf (0-2) 02/01/17 12:20 Urine WBC 0 - 2 /hpf (0-6) 02/01/17 12:20 Ur Epithelial Cells None /hpf (0-5) 02/01/17 12:20 Amorphous Sediment Few 02/01/17 12:20 Urine Bacteria Mod (NEG) 02/01/17 12:20 Urine Opiates Screen Positive (NEGATIVE) H 01/30/17 03:40 Urine Methadone Screen Negative (NEGATIVE) 01/30/17 03:40 Ur Barbiturates Screen Negative (NEGATIVE) 01/30/17 03:40 Ur Phencyclidine Scrn Negative (NEGATIVE) 01/30/17 03:40 Ur Amphetamines Screen Negative (NEGATIVE) 01/30/17 03:40 U Benzodiazepines Scrn Positive (NEGATIVE) H 01/30/17 03:40 U Oth Cocaine Metabols Negative (NEGATIVE) 01/30/17 03:40 U Cannabinoids Screen Negative (NEGATIVE) 01/30/17 03:40 Hepatitis A IgM Ab Negative (NEGATIVE) 01/30/17 02:00 Hep Bs Antigen Negative (NEGATIVE) 01/30/17 02:00 Hep B Core IgM Ab Negative (NEGATIVE) 01/30/17 02:00 Hepatitis C Antibody Reactive (NEGATIVE) H 01/30/17 02:00 HIV 1&2 Ag/Ab, 4th Gen Nonreactive (Nonreactive) 01/30/17 07:00 Attending/Attestation - Attestation I have personally seen and examined this patient.: Yes I have fully participated in the care of the patient.: Yes I have reviewed all pertinent clinical information, including history, physical exam and plan: Yes Notes (Text): Patient was seen and examined with medical nurse .Agreed with resident assessment and plan. 61 year old male with past medical history of diabetes, substance abuse and chronic leg ulcerations presented with complaint of worsening leg ulcerations.WBC scan showed soft tissue uptake in both legs with sinus tract , anteriorly at the level of mid shaft of right tibia, extending to the surface, will need total 4 wks of IV Rocephin as per ID.Patient got PICC line today.He will be discharged to rehab facility for IV antibiotic therapy.He will need weakly CBC,CMP and CRP while on antibiotics. Management plan was discussed in detail with patient Education was provided.
--- NOTE | 2017-02-06 17:52 | VASCULAR ---
PROCEDURE: Ultrasound and fluoroscopically placed left upper extremity PICC line. HISTORY: Bilateral lower extremity ulcerations. Diabetes. Term IV antibiotics. PHYSICIAN(S): Stas Cowan MD. TECHNIQUE: The relative risks and indications of the procedure were explained to the patient and consent obtained. The patient was placed supine on the arteriogram table and the left arm prepped and draped in the usual sterile fashion. A tourniquet was applied to the left axilla. 1% Xylocaine was used to anesthetize the skin and soft tissues at the puncture site above the elbow. The left basilic vein was punctured under direct ultrasound guidance with a micropuncture set. A 0.018 guidewire was advanced centrally and used to measure the length to the SVC/RA junction. A 5 [place] single-lumen PICC line 50 cm long was advanced to the SVC/RA junction. The catheter was flushed and secured. The patient tolerated the procedure well. IMPRESSION: 1. Ultrasound and fluoroscopically placed left upper extremity PICC line. A 5 [place] single-lumen PICC line 50 cm long was advanced to the SVC/RA junction.
--- NOTE | 2017-02-06 17:54 | CP.PCM.PN ---
Subjective - Date & Time of Evaluation Date of Evaluation: 02/06/17 Time of Evaluation: 08:55 - Subjective Subjective: Comfortable, less pain in the legs, no fevers overnight. Objective - Vital Signs/Intake and Output Vital Signs (last 24 hours): Temp Pulse Resp BP Pulse Ox 99.3 F 56 L 18 140/74 98 02/06/17 06:00 02/06/17 09:18 02/06/17 06:00 02/06/17 09:18 02/06/17 06:00 Intake and Output: 02/06/17 02/06/17 06:59 18:59 Intake Total 400 840 Output Total 400 Balance 0 840 - Medications Medications: Current Medications Heparin Sodium (Porcine) (Heparin) 5,000 units SC Q8 ELIJAH PRN Reason: Protocol Last Admin: 02/06/17 14:48 Dose: 5,000 units Hydralazine HCl (Apresoline) 10 mg IVP Q6 PRN PRN Reason: Systolic Blood Pressure Last Admin: 02/02/17 19:28 Dose: 10 mg Ceftriaxone Sodium (Rocephin 1 Gram Ivpb) 100 mls @ 100 mls/hr IVPB DAILY [facility] PRN Reason: Protocol Last Admin: 02/06/17 09:27 Dose: 100 mls/hr Insulin Detemir (Levemir) 10 unit SC HS [facility] Last Admin: 02/05/17 21:57 Dose: 10 unit Insulin Human Lispro (Humalog Med) 0 units SC ACHS [facility] PRN Reason: Protocol Last Admin: 02/06/17 17:17 Dose: 1 units Insulin Human Lispro (Humalog) 3 units SC AC [facility] Last Admin: 02/06/17 17:17 Dose: 3 units Lisinopril (Zestril) 5 mg PO DAILY [facility] Last Admin: 02/06/17 09:18 Dose: 5 mg Loperamide HCl (Imodium) 2 mg PO QID PRN PRN Reason: Diarrhea Last Admin: 02/06/17 12:40 Dose: 2 mg Lorazepam (Ativan) 0.5 mg IVP Q6H PRN; Protocol PRN Reason: Anxiety Last Admin: 02/01/17 11:08 Dose: 0.5 mg Ondansetron HCl (Zofran Inj) 4 mg IVP Q4H PRN PRN Reason: Nausea/Vomiting Last Admin: 02/02/17 22:51 Dose: 4 mg Pantoprazole Sodium (Protonix Ec Tab) 40 mg PO 0630 ELIJAH Last Admin: 02/06/17 05:30 Dose: 40 mg Tramadol/Acetaminophen (Ultracet 37.5/325 Mg) 1 tab PO Q6H PRN PRN Reason: Pain, moderate (4-7) Last Admin: 02/06/17 12:21 Dose: 1 tab Trazodone HCl (Desyrel) 50 mg PO HS PRN PRN Reason: Insomnia Last Admin: 02/05/17 22:09 Dose: 50 mg - Labs Labs: 02/06/17 06:00 02/06/17 06:00 - Constitutional Appears: Non-toxic, No Acute Distress - Head Exam Head Exam: NORMAL INSPECTION - ENT Exam ENT Exam: Mucous Membranes Moist - Neck Exam Neck Exam: absent: Lymphadenopathy, Meningismus - Respiratory Exam Respiratory Exam: Decreased Breath Sounds - Cardiovascular Exam Cardiovascular Exam: +S1, +S2 - GI/Abdominal Exam GI & Abdominal Exam: Soft. absent: Tenderness - Extremities Exam Additional comments: both legs with dry dressings in place Assessment and Plan - Assessment and Plan (Free Text) Plan: Assessment Bilateral lower extremity ulcers with skin and skin structure infection with evidence of sinus tracts from the mid tibia (that would be suspicious for osteomyelitis); growing Serratia DM HTN peripheral arterial disease peripheral neuropathy history of substance abuse history of depression Plan continue Rocephin (day 8); would recommend at least 4 weeks of antibiotics with weekly ESR, CRP, CBC, CMP while on antibiotics Discussed with Dr. Parker
[2017-02-06 18:59] VITALS: BP 149/99; PULSE 63; RESP 20; TEMP 98.7; O2SAT 99
== END 2017-02-06 20:52 | DRG 277 ==
LOC: ED 20:50 → ERH 01-30 02:59 → 3RNO 01-30 04:53
PROVIDERS: ADMIT Hospitalist; ATTEND Internal Medicine
PROC: 02HV33Z Insertion of Infusion Device into Superior Vena Cava, Percutaneous Approach (ICD-10-PCS; principal; 2017-02-06)
PROC: B54NZZA Ultrasonography of Left Upper Extremity Veins, Guidance (ICD-10-PCS; 2017-02-06)
PROC: B51N1ZA Fluoroscopy of Left Upper Extremity Veins using Low Osmolar Contrast, Guidance (ICD-10-PCS; 2017-02-06)
DX: L03.115 Cellulitis of right lower limb (principal); E11.622 Type 2 diabetes mellitus with other skin ulcer; L97.329 Non-pressure chronic ulcer of left ankle with unspecified severity; L97.319 Non-pressure chronic ulcer of right ankle with unspecified severity; E11.42 Type 2 diabetes mellitus with diabetic polyneuropathy; E11.51 Type 2 diabetes mellitus with diabetic peripheral angiopathy without gangrene; F13.20 Sedative, hypnotic or anxiolytic dependence, uncomplicated; F11.23 Opioid dependence with withdrawal; F14.10 Cocaine abuse, uncomplicated; B19.20 Unspecified viral hepatitis C without hepatic coma; E87.6 Hypokalemia; E11.65 Type 2 diabetes mellitus with hyperglycemia; L03.116 Cellulitis of left lower limb; E11.69 Type 2 diabetes mellitus with other specified complication; M86.8X6 Other osteomyelitis, lower leg; F17.210 Nicotine dependence, cigarettes, uncomplicated; B96.89 Other specified bacterial agents as the cause of diseases classified elsewhere; D64.9 Anemia, unspecified; F32.9 Major depressive disorder, single episode, unspecified; I10 Essential (primary) hypertension; R19.7 Diarrhea, unspecified; Z79.4 Long term (current) use of insulin

== ENCOUNTER 2017-10-11 15:44 | Emergency (ER) | payer OTHER ==
[2017-10-11] MEDS ORDERED: Insulin Regular 1 UNITS/0.01 ML ML SC STA ×3 (16:14→19:29)
--- NOTE | 2017-10-11 16:16 | ED PDOC ---
Arrival/HPI - General Chief Complaint: High Blood Sugar Time Seen by Provider: 10/11/17 15:58 Historian: Patient, Family - History of Present Illness Narrative History of Present Illness (Text): 10/11/17 16:07 A 62 year old male, whose past medical history includes diabetes on insulin, presents to the emergency department complaining of high blood sugar. Per family , patient had blood work done 2 days ago. Today, PMD called patient and directed him to go visit the ER due to high blood sugar. Patient notes also experiencing dizziness, lightheadedness, dehydration, and urinary frequency. Denies of any nausea, vomiting, abdominal pain, leg swelling, or any other complaints. Past Medical History - Provider Review Nursing Documentation Reviewed: Yes - Infectious Disease Hx of Infectious Diseases: None - Cardiac Hx Hypertension: Yes - Pulmonary Hx Respiratory Disorders: No - Neurological Hx Neurological Disorder: No - HEENT Hx HEENT Disorder: No - Renal Hx Renal Disorder: No - Endocrine/Metabolic Hx Diabetes Mellitus Type 1: Yes - Hematological/Oncological Hx Blood Disorders: No - Integumentary Hx Dermatological Disorder: No - Musculoskeletal/Rheumatological Hx Musculoskeletal Disorders: No - Gastrointestinal Hx Gastrointestinal Disorders: No - Genitourinary/Gynecological Hx Genitourinary Disorders: No - Psychiatric Hx Psychophysiologic Disorder: No Hx Substance Use: Yes - Surgical History Hx Orthopedic Surgery: Yes Other/Comment: RLE surgery. L neck surgery - Anesthesia Hx Anesthesia: Yes Hx Anesthesia Reactions: No Hx Malignant Hyperthermia: No Family/Social History - Physician Review Nursing Documentation Reviewed: Yes Family/Social History: No Known Family HX Smoking Status: Heavy Smoker > 10 Cigarettes Daily Hx Alcohol Use: No Hx Substance Use: Yes Substance used: Heroine, Xanax (not prescribed) Allergies/Home Meds Allergies/Adverse Reactions: Allergies No Known Allergies Allergy (Verified 01/29/17 21:40) Home Medications: Home Meds Medication Instructions Recorded Confirmed Gabapentin [Neurontin] 1 cap PO TID 10/11/17 10/11/17 Insulin Glargine, Recombina 25 units SC HS 10/11/17 10/11/17 [Lantus] Review of Systems - Physician Review All systems were reviewed & negative as marked: Yes - Review of Systems Constitutional: Other (dehydration) Gastrointestinal: absent: Abdominal Pain, Nausea, Vomiting Genitourinary Male: Frequency Musculoskeletal: absent: Other (no leg swelling) Neurological: Dizziness, Other (lightheadedness) Physical Exam Vital Signs Reviewed: Yes Vital Signs Temp Pulse Resp BP Pulse Ox 10/11/17 20:53 63 18 159/76 H 92 L 10/11/17 18:09 77 18 146/82 93 L 10/11/17 16:12 99.1 F 82 18 134/83 95 Temperature: Afebrile Blood Pressure: Normal Pulse: Regular Respiratory Rate: Normal Appearance: Positive for: Well-Appearing, Other (well-hydrated) Pain Distress: None Mental Status: Positive for: Alert and Oriented X 3 Finger Stick Blood Glucose: 442 - Systems Exam Respiratory/Chest: Present: Clear to Auscultation, Good Air Exchange. No: Respiratory Distress, Accessory Muscle Use Cardiovascular: Present: Regular Rate and Rhythm, Normal S1, S2. No: Murmurs Abdomen: Present: Normal Bowel Sounds. No: Tenderness, Distention, Peritoneal Signs Lower Extremity: Present: Edema (+1), Other (healing, noninflammed wound to right pretibia; no open sores) Neurological: Present: GCS=15, CN II-XII Intact, Speech Normal Medical Decision Making ED Course and Treatment: 10/11/17 16:11 Impression: 62 year old male with high blood pressure. Plan: -- Labs -- Reassess and disposition Prior Visits: Notes and results from previous visits were reviewed. Patient was last seen in the emergency department on 01/29/2017 for infected leg ulcers. Patient was admitted. Progress Notes: - Lab Interpretations Lab Results: 10/11/17 21:00 10/11/17 21:00 Lab Results 10/11/17 21:00: Sodium 135, Potassium 4.2, Chloride 95 L, Carbon Dioxide 31, Anion Gap 14, BUN 15, Creatinine 0.8, Est GFR ( Amer) > 60, Est GFR (Non- Af Amer) > 60, Random Glucose 342 H* D, Calcium 9.2, Total Bilirubin 0.5, AST 42 , ALT 65 H, Alkaline Phosphatase 94, Total Protein 8.8 H, Albumin 4.1, Globulin 4.7, Albumin/Globulin Ratio 0.9 L 10/11/17 21:00: WBC 10.8, RBC 4.74, Hgb 14.9, Hct 42.2, MCV 89.0, MCH 31.4, MCHC 35.3, RDW 12.4, Plt Count 195, MPV 11.7 H, Gran % 60.1, Lymph % (Auto) 31.9 , [place] % (Auto) 5.0, Eos % (Auto) 2.7, Baso % (Auto) 0.3, Gran # 6.50, Lymph # 3.5 H, [place] # 0.5, Eos # 0.3, Baso # 0.03 Blood sugar now 342. Patient is asymptomatic. - Medication Orders Current Medication Orders: Discontinued Medications Sodium Chloride (Sodium Chloride 0.9%) 1,000 mls @ 999 mls/hr IV .Q1H1M STA Stop: 10/11/17 17:13 Last Admin: 10/11/17 17:48 Dose: 999 mls/hr eMAR Start Stop Document 10/11/17 17:48 GMD (Rec: 10/11/17 17:48 GMD [facility] [id number]) Intravenous Solution Start Date 10/11/17 Start Time 17:48 End Date 10/11/17 End time 18:49 Total Infusion Time 61 Insulin Human Regular (Humulin R) 15 units SC STAT STA Stop: 10/11/17 16:15 Last Admin: 10/11/17 16:30 Dose: 15 units Subcutaneous Administrations Document 10/11/17 16:30 GMD (Rec: 10/11/17 16:30 GMD [facility] [id number]) Injection Site MAR Injection Site Left Arm Charges for Administration # of Subcutaneous Administrations 1 Insulin Human Regular (Humulin R) 15 units SC STAT STA Stop: 10/11/17 19:30 Last Admin: 10/11/17 19:41 Dose: 15 units MAR Blood Glucose Document 10/11/17 19:41 GMD (Rec: 10/11/17 19:41 GMD [facility] [id number]) Blood Glucose Finger Stick Blood Glucose (70-120) 390 Subcutaneous Administrations Document 10/11/17 19:41 GMD (Rec: 10/11/17 19:41 GMD [facility] [id number]) Injection Site MAR Injection Site Right Arm Charges for Administration # of Subcutaneous Administrations 1 - Scribe Statement The provider has reviewed the documentation as recorded by the Ciroibe Jim Seaman Provider Scribe Attestation: All medical record entries made by the Scribe were at my direction and personally dictated by me. I have reviewed the chart and agree that the record accurately reflects my personal performance of the history, physical exam, medical decision making, and the department course for this patient. I have also personally directed, reviewed, and agree with the discharge instructions and disposition. Disposition/Present on Arrival - Present on Arrival Any Indicators Present on Arrival: No History of DVT/PE: No History of Uncontrolled Diabetes: No Urinary Catheter: No History of Decub. Ulcer: No History Surgical Site Infection Following: None - Disposition Have Diagnosis and Disposition been Completed?: Yes Diagnosis: Hyperglycemia, Diabetes mellitus Disposition: HOME/ ROUTINE Disposition Time: 22:00 Patient Plan: Discharge Condition: IMPROVED Discharge Instructions (ExitCare): Diabetic Hyperglycemia (ED) [facility], [facility] - Follow up with primary Forms: DS [employer] ([place])
[2017-10-11 16:24] VITALS: RESP 18; TEMP 99.1; BMI 29.9
[2017-10-11] MEDS: Sodium Chloride 0.9% 1,000 ML IV STA ×2 (16:30→17:48)
[2017-10-11 21:16] LABS: BASO # 0.03 K/mm3 (0.0-2.0); BASO % 0.3 % (0.0-3.0); EOS # 0.3 (0.0-0.7); EOS % 2.7 % (1.5-5.0); GRAN # 6.5 (1.4-6.5); GRAN % 60.1 % (50.0-68.0); HEMATOCRIT 42.2 % (42.0-52.0); LYMPH # 3.5 (1.2-3.4); LYMPH % 31.9 % (22.0-35.0); MEAN CORPUSCULAR HEMOGLOBIN 31.4 pg (25.0-35.0); MEAN CORPUSCULAR HGB CONC 35.3 g/dl (31.0-37.0); MEAN PLATELET VOLUME 11.7 fl (7.0-11.0); MONO # 0.5 (0.1-0.6); RED CELL DISTRIBUTION WIDTH 12.4 % (11.5-14.5); WHITE BLOOD COUNT 10.8 10^3/ul (4.5-11.0)
[2017-10-11 21:44] LABS: ALB/GLOB RATIO 0.9 (1.1-1.8); ALKALINE PHOSPHATASE 94 U/L (38-126); ALT/SGPT 65 U/L (7-56); AST/SGOT 42 U/L (17-59); BILIRUBIN,TOTAL 0.5 mg/dL (0.2-1.3); BLOOD UREA NITROGEN 15 mg/dL (7-21); CALCIUM 9.2 mg/dL (8.4-10.5); CARBON DIOXIDE 31 mmol/L (21-33); CHLORIDE 95 mmol/L (98-107); GFR AFRICAN-AMERICAN > 60; POTASSIUM 4.2 mmol/L (3.6-5.0); SODIUM 135 mmol/L (132-148); TOTAL PROTEIN 8.8 g/dL (5.8-8.3)
[2017-10-11 21:45] LABS: GLUCOSE,RANDOM 342 mg/dL (70-110)
[2017-10-11 21:58] VITALS: BP 141/78; PULSE 67; O2SAT 95
== END 2017-10-11 22:26 | disposition home or self-care (01) ==
LOC: ED 15:44
DX: E10.65 Type 1 diabetes mellitus with hyperglycemia (principal); Z79.4 Long term (current) use of insulin; I10 Essential (primary) hypertension; F17.210 Nicotine dependence, cigarettes, uncomplicated
CPT/HCPCS: 80053; 85025; 96360; 96372; 99285; J7040